=== PATIENT | female | born 1960 | race Caucasian/White ===

== ENCOUNTER 2018-06-24 07:30 | Inpatient (IN) | payer OTHER ==
--- NOTE | 2018-06-11 17:48 | HP ---
HISTORY AND PHYSICAL: DATE OF ADMISSION/SURGERY: 06/24/18 DATE OF OFFICE VISIT: 06/11/18 SURGEON: Marycruz Bailey MD *(DICTATED BYMARK VALENCIA) PROCEDURE: Bilateral total knee arthroplasties. CHIEF COMPLAINT: Bilateral knee pain. HISTORY OF PRESENT ILLNESS: Ms. Bowman is a 58-year-old female with bilateral knee pain secondary to end-stage osteoarthritis. She has failed conservative treatment and elected to proceed with bilateral total knee arthroplasties. PAST MEDICAL HISTORY: Rheumatoid arthritis. PAST SURGICAL HISTORY: Tonsillectomy, bunionectomy x2, tubal ligation, LASIK, cholecystectomy, anal fistula surgery, pilonidal cyst removal, and wisdom teeth extraction. CURRENT MEDICATIONS: 1. Advil. 2. Vitamin D. ALLERGIES: To PENICILLIN and SULFA. FAMILY HISTORY: Questionable aortic aneurysm. SOCIAL HISTORY: She is a 58-year-old female. She lives with her . She does not smoke or use drugs. Uses occasional alcohol. REVIEW OF SYSTEMS: A complete 14-point review of systems was reviewed with the patient. It was all negative or noncontributory. She denies a history of DVT, PE, hepatitis, HIV, or anesthesia problems. PHYSICAL EXAMINATION GENERAL: She is well-developed, well-nourished, in no acute distress. VITAL SIGNS: She stands 64 inches tall, weighs 245 pounds. Her blood pressure 136/80, heart rate 76. HEENT: Normocephalic, atraumatic. NECK: Supple. No palpable lymph nodes. PULMONARY: The lungs are clear to auscultation bilaterally. CARDIO: Regular rate and rhythm. Strong S1, S2. ABDOMEN: Soft, nontender, nondistended. NEUROLOGICAL: She is alert and oriented x3. MUSCULOSKELETAL: Bilateral lower extremities: The skin is intact. There are no open wounds or abrasions. There are moderate bilateral joint effusions. She walks with an antalgic-type gait. Range of motion is 10 to 120 degrees of both knees. Tenderness over the medial and lateral joint lines bilaterally. 2+ dorsalis pedis pulses bilaterally. She has intact sensation. Her lower extremity muscle group strengths are intact at 5/5 bilaterally. ASSESSMENT AND PLAN: Ms. Bowman is a 58-year-old female with end-stage osteoarthritis of both knees. She has failed conservative treatment and elected to proceed with bilateral knee arthroplasties. The surgery is scheduled for 06/24/18. Dr. Bailey discussed the risks and benefits of the surgery at today's visit and all of her questions were answered. She will follow up with Dr. Bailey 2 weeks after the surgery. MARK VALENCIA [id number]/[facility] #: [id number] [place]
[~2018-06-24 07:30] MED LIST: Buffered Lidocaine 0.9% SYRIN* 5 ML/SYR SYRINGE INTRADERM ONE; Sodium Citrate/Citric Acid* 15 ML UDC PO ONE; Tranexamic Acid 1,000 MG in NS 0.9% 50 ML* (outpatient use) IV SCH
--- OUTSIDE RECORDS SUMMARY | 2018-06-24 10:43 | XMS REPORT | Continuity of Care Document ---
:1960 External Reference #:[id number] Author Name Carolny Cullen M.D. Address [address] [place] [address] Care Team Providers Name Role Phone Carolyn Cullen M.D. Primary Care Physician Unavailable Payers Type Date Identification Numbers Payment Provider Subscriber Effective: Policy Number: [id number] [facility] Tamir Bowman 2000 Expires: 2012 Group Number: [id number] [address] PayID: [id number] [place] [address] Effective: 2012 Policy Number: [id number] [employer] Tamir Bowman Group Number: [id number] [address] PayID: [id number] [place] [address] Advance Directives Description No Information Available Problems Date Description Provider Status Onset: 08/24/2011 Pure hypercholesterolemia Radha Kim M.D. Active Onset: 08/24/2011 Arthralgia of the lower leg Radha Kim M.D. Active Onset: 08/24/2011 Obesity Radha Kim M.D. Active Family History Date Family Member(s) Problem(s) Comments Father CHF age 86 07/2015 Mother [place] age 60- of sudden [place]- thought to be due to ruptured aorta aneurysm Onset: (11/1993) Mother Aortic Aneurysm Cause of First Sister Hypertension Second Sister Hypertension Second Sister Osteoarthritis Maternal Grandfather ? Polycythemia ? thick blood Maternal Grandfather CVA possible due to thick blood- 50's or 60's Maternal Grandmother CVA around age 80 Social History Type Date Description Comments Sex Unknown Marital Status Tobacco Use Start: Unknown End: former cigarette smoker Quit 1981- started 1976 Unknown age 17- 4 years-- maybe 1-2 packs per week-- maybe 1-2 pack years Tobacco Use Start: Unknown End: Former Cigarette Smoker Unknown Allergies, Adverse Reactions, Alerts Date Description Reaction Status Severity Comments 06/02/2002 Penicillin Active Hives, ?Serum Sickness, Tight Breathing 09/19/2002 Sulfa Active Hives On Bactrim 04/13/2016 Plaquenil Rash Active Moderate rash likely due to plaquenil Medications Medication Date Status Form Strength Qnty SIG Indications Ordering Provider Econazole Nitrate 06/03 Active Cream 1% 30gm apply B37.2 twice a P. Blegen, day to M.D. fungal rash as directed for 2-4 weeks Vitamin D3 04/10 Active Capsules 2000Unit 1 by mouth P. Blegen, every day M.D. for vitamin d deficienc y Nasonex 03/09 Active Suspension 50mcg/Act 17uni instill 2 465.9 ts sprays in [facility], each TRUCKER-C nostril daily for rhinitis Nystatin 08/05 Hx Cream [id number] 30G use twice B37.2 t/GM a day to P. Blegen, - yeast M.D. 06/03 under breasts as needed for up to 2 weeks Ciprofloxacin HCL 10/23 Hx Tablets 500mg 16tab 1 by R10.32 Carolyn s mouth P. Blegen, - twice a M.D. 08/04 day x days for diverticu ltis- Please Fill Now Metronidazole 10/23 Hx Tablets 500mg 16tab 1 by R10.32 Carolyn s mouth P. Blegen, - twice a M.D. 08/04 day x days for Diverticu litis- Please Fill Now Ciprofloxacin HCL 05/06 Hx Tablets 500mg 20tab 1 by 562.11 s mouth [place] - twice a III, TRUCKER-C 01/15 day x days Metronidazole 05/06 Hx Tablets 500mg 20tab one by 562.11 Beto s mouth [place] - bidx 10 III, TRUCKER-C 01/15 days- not drink alcohol- please fill artemio Nitrofurantoin 03/21 Hx Capsules 100mg 14cap [address] s mouth P. Blegen, - twice a M.D. 01/15 day x days for uti Vitamin D3 03/15 Hx Capsules 2000Unit 1 by Carolyn mouth P. Blegen, - every day M.D. 01/15 Metronidazole 03/01 Hx Tablets 500mg 20tab one by 562.11 Carolyn s mouth P. Blegen, - BIDx 10 M.D. 03/15 days- not drink alcohol- please fill artemio Ciprofloxacin HCL 03/01 Hx Tablets 500mg 20tab 1 by 562.11 s mouth P. Blegen, - twice a M.D. 03/15 day x Days Oxycodone-Acetami 06/09 Hx Tablets 5-325mg 20twe 1-2 by 789.9 Susana nty mouth Julian, - every 4-6 TRUCKER-C 10/11 hours needed for pain Ciprofloxacin HCL 06/09 Hx Tablets 500mg 20tab take 1 s tablet by Julian, - mouth TRUCKER-C 10/11 twice day x 10 days Metronidazole 06/09 Hx Tablets 500mg 30tab take 1 s tablet by Julian, - mouth TRUCKER-C 10/11 times a day x 10 days Vitamin D3 06/01 Hx Capsules 1000Unit 2000 Iu Per Day - Shailesh Cullen, - Vitamin D M.D. 03/15 Deficien y Nystatin 03/02 Hx Cream [id number] 30G use twice t/GM a day to PJackie Cullen, - yeast M.D. 03/15 rash needed for up to 2 weeks Benzonatate 02/19 Hx Capsules 100mg 30cap 1 po tid 466.0 Shawnti R. /2012 s prn cough Storm, - TRUCKER-C 03/02 Azithromycin 02/19 Hx Tablets 250mg 6tabs 2 po 466.0 Shawnti R. /2012 today , - then 1 po TRUCKER-C 03/02 daily for 4 days Methylprednisolon 02/19 Hx Tablets 4mg 1pack take 466.0 Shawnti R. e Dose Pack oraly per , - package TRUCKER-C 03/02 direction s Ventolin HFA 02/19 Hx Aerosol 108(90Bas 18gm inhale 466.0 Shawnti R. e) two puffs , - mcg/Act by mouth TRUCKER-C 03/02 every hours as needed for wheeze Ondansetron Odt 05/08 Hx Tablets 4mg 20tab 1 po tid 079.99 Shawnti R. /2011 Dispers s prn , - nausea TRUCKER-C 03/02 Nabumetone 07/20 Hx Tablets 500mg 60tab 1 po bid 719.47 Radha s Bill Kim, - M.D. 03/02 Robitussin ac 07/27 Hx 150ml 1-2 tsp [facility]9 [facility] - prn TRUCKER-C 07/20 cough/sury n Guaifenesin-Codei 01/14 Hx Solution 100-10mg/ 150ml 1-2 tsp 465.9 Diego 5ML po q4hr Buster, - prn M.D. 07/20 Azithromycin 01/14 Hx Tablets 250mg 6tabs 2 po qd 465.9 day 1, Buster, - then 1 po M.D. 04/14 qd 2-5 Cephalexin 03/01 Hx Tablets 500mg 20tab 1 po bid 706.2 Harriet A. /2009 s for 10 Nicole, - days F.N.P.C. 03/01 Erythromycin 03/[address] 333mg 30tab one po 706.2 Harriet A. /2008 s tid for Nicole, - 10 days F.N.P.C. 07/20 Levaquin 01/05 Hx Tablets 500mg 14tab one p.O. 682.9 s qd x14 K.W. - days Alexx, 07/20 M.D. Keflex 12/22 Hx Capsules 500mg 20cap 1 po bid 682.9 s for 10 K.W. - days , 01/05 M.D. Proventil HFA 02/20 Hx Aerosol 90mcg/Dos 6.700 2 Puffs Q 466.0 Shawnti R. /2006 e gm 4 Hours Storm, - prn TRUCKER-C 02/19 Robitussin A-C 02/20 Hx Syrup 100mg;10m 4Oz one -two g/5ML teaspoons P. Blegen, - po qhs M.D. 01/14 prn /2009 cough- causes drowsines s Physical Therapy/ 10/02 Hx eval and Carolyn Chiropractor /2005 treat P. Blegen, - upper M.D. 07/20 back and /2010 neck pain Albuterol Metered 03/08 Hx Inhaler 17gm 2 puffs q Carolyn Dose Inhaler /2004 4hrs prn P. Blegen, - wheezing/ M.D. 08/07 Zithromax Z-Brent 03/08 Hx Tablets 250mg 6tabs two po qd today and P. Blegen, - then one M.D. 08/07 po qd 4 days Anaprox DS 04/12 Hx Tablets 550mg 90tab one s bid-tid K.W. - with food , 08/07 for foot .D. pain Robitussin A-C 09/22 Hx Syrup 4Oz 1-2 tsp 466.0 qhs prn P. Blegen, - cough M.D. 08/07 Zithromax 09/19 Hx Tablets 250mg 6tabs 2 on day one, then K.W. - one qd x4 Alexx, 09/28 days M.D. /2003 Ceftin 06/02 Hx 250mg 20uni One Twice Kayley ts A Day For Britni, - 10 Days CHEMICAL WEIGHER 11/17 Plaquenil Hx Tablets 200mg Carla, /0000 Toribio - 04/10 Immunizations CPT Code Status Date Vaccine Lot # [id number] Given 10/12/2014 Tdap (Adacel) [id number] Given 11/17/2002 DT (Adult) [id number] Given 09/09/1990 Tetanus Vital Signs Date Vital Result Comment 06/03/2018 1:54pm Weight 246.00 lb Weight 111.586 kg BP Systolic 136 mmHg BP Diastolic 88 mmHg BP Systolic Sitting 142 mmHg BP Diastolic Sitting 100 mmHg Heart Rate 74 /min Body Temperature 97.8 F Respiratory Rate 15 /min O2 % BldC Oximetry 99 % 08/05/2017 9:43am Weight 244.00 lb Weight 110.678 kg BP Systolic 120 mmHg BP Diastolic 70 mmHg Heart Rate 80 /min Body Temperature 97.5 F Height 65.5 inches 5'5.50" with shoes BMI (Body Mass Index) 40.0 kg/m2 Waist Circumference 47 10/23/2016 4:35pm Weight 253.00 lb Weight 114.761 kg BP Systolic 110 mmHg BP Diastolic 76 mmHg Heart Rate 72 /min Body Temperature 97.8 F 08/14/2016 3:02pm Weight 256.00 lb Weight 116.122 kg BP Systolic 130 mmHg BP Diastolic 80 mmHg Heart Rate 60 /min Body Temperature 97.5 F Respiratory Rate 12 /min 04/10/2016 12:04pm Weight 251.00 lb Weight 113.854 kg BP Systolic 130 mmHg BP Diastolic 88 mmHg Heart Rate 76 /min Body Temperature 98.6 F Respiratory Rate 18 /min O2 % BldC Oximetry 98 % 01/16/2016 4:44pm Weight 254.00 lb Weight 115.214 kg BP Systolic 130 mmHg BP Diastolic 90 mmHg Heart Rate 82 /min Body Temperature 99.0 F 05/06/2015 1:56pm Weight 243.00 lb Weight 110.225 kg BP Systolic 130 mmHg BP Diastolic 72 mmHg Heart Rate 96 /min Body Temperature 98.5 F 03/15/2015 1:04pm Weight 242.00 lb Weight 109.771 kg BP Systolic 102 mmHg BP Diastolic 70 mmHg Heart Rate 68 /min Height 64 inches 5'4" BMI (Body Mass Index) 41.5 kg/m2 03/09/2015 9:58am Weight 243.00 lb Weight 110.225 kg BP Systolic 130 mmHg BP Diastolic 84 mmHg Heart Rate 68 /min Body Temperature 99.5 F O2 % BldC Oximetry 98 % 03/01/2015 12:44pm Weight 246.00 lb Weight 111.586 kg BP Systolic 138 mmHg BP Diastolic 80 mmHg Heart Rate 80 /min Body Temperature 99.8 F 11/25/2014 3:34pm Weight 248.00 lb Weight 112.493 kg BP Systolic 134 mmHg BP Diastolic 76 mmHg Heart Rate 66 /min Body Temperature 98.2 F 10/12/2014 1:18pm Weight 248.00 lb Weight 112.493 kg BP Systolic 146 mmHg BP Diastolic 74 mmHg Heart Rate 64 /min 06/09/2014 10:33am Weight 241.00 lb Weight 109.318 kg BP Systolic 110 mmHg BP Diastolic 80 mmHg Heart Rate 70 /min Body Temperature 98.7 F 03/02/2014 2:07pm Weight 241.00 lb Weight 109.318 kg BP Systolic 142 mmHg BP Diastolic 80 mmHg Heart Rate 60 /min Height 64 inches 5'4" BMI (Body Mass Index) 41.4 kg/m2 Last Menstrual Period [id number] 02/19/2013 3:01pm Weight 244.00 lb Weight 110.678 kg BP Systolic 140 mmHg BP Diastolic 90 mmHg Heart Rate 80 /min Body Temperature 99.1 F Respiratory Rate 20 /min BMI (Body Mass Index) 428.8 kg/m2 05/08/2012 12:00pm Weight 243.00 lb Weight 110.225 kg BP Systolic 130 mmHg BP Diastolic 90 mmHg Heart Rate 100 /min Body Temperature 99.1 F O2 % BldC Oximetry 98 % AT Room Air 07/20/2011 4:20pm Weight 249.00 lb Weight 112.946 kg BP Systolic 122 mmHg BP Diastolic 80 mmHg Heart Rate 92 /min 07/27/2010 2:19pm Weight 244.00 lb Weight 110.678 kg BP Systolic 124 mmHg BP Diastolic 80 mmHg Heart Rate 96 /min Body Temperature 99.0 F O2 % BldC Oximetry 98 % at room air 01/14/2010 11:59am Weight 245.00 lb Weight 111.132 kg BP Systolic 130 mmHg BP Diastolic 80 mmHg Heart Rate 88 /min Body Temperature 99.1 F 11/17/2009 5:05pm Weight 58.968 kg BP Systolic 130 mmHg BP Diastolic 90 mmHg Heart Rate 68 /min 03/01/2009 1:56pm Weight 240.00 lb Weight 108.864 kg BP Systolic 142 mmHg BP Diastolic 74 mmHg Body Temperature 99.1 F 01/06/2008 10:39am Weight 238.00 lb Weight 107.957 kg BP Systolic 124 mmHg BP Diastolic 76 mmHg Heart Rate 78 /min Height 63.2 inches 5'3.20" BMI (Body Mass Index) 41.9 kg/m2 12/23/2007 10:18am Weight 235.00 lb Weight 106.596 kg BP Systolic 120 mmHg BP Diastolic 60 mmHg Heart Rate 68 /min Height 63.2 inches 5'3.20" BMI (Body Mass Index) 41.4 kg/m2 10/24/2007 4:01pm Weight 237.00 lb Weight 107.503 kg BP Systolic 120 mmHg BP Diastolic 78 mmHg Heart Rate 64 /min Height 63.2 inches 5'3.20" BMI (Body Mass Index) 41.7 kg/m2 05/26/2007 11:35am Weight 231.00 lb Weight 104.782 kg BP Systolic 114 mmHg BP Diastolic 78 mmHg Heart Rate 88 /min Body Temperature 99.4 F Height 63.2 inches 5'3.20" BMI (Body Mass Index) 40.7 kg/m2 02/20/2007 11:43am BP Systolic 118 mmHg BP Diastolic 76 mmHg Heart Rate 100 /min Body Temperature 97.8 F Height 63.2 inches 5'3.20" O2 % BldC Oximetry 97 % 10/02/2005 5:32pm Weight 229.50 lb Weight 104.101 kg BP Systolic 130 mmHg BP Diastolic 80 mmHg Height 63.2 inches 5'3.20" BMI (Body Mass Index) 40.4 kg/m2 08/07/2005 1:34pm Weight 232.00 lb Weight 105.235 kg BP Systolic 104 mmHg BP Diastolic 70 mmHg Heart Rate 72 /min Height 63.2 inches 5'3.20" BMI (Body Mass Index) 40.8 kg/m2 Last Menstrual Period [id number] 03/08/2005 10:28am Weight 229.00 lb Weight 103.874 kg BP Systolic 116 mmHg BP Diastolic 74 mmHg Body Temperature 97.9 F 04/12/2004 4:08pm Weight 225.00 lb Weight 102.060 kg BP Systolic 118 mmHg BP Diastolic 70 mmHg 09/22/2003 2:58pm Weight 225.00 lb Weight 102.060 kg BP Systolic 110 mmHg BP Diastolic 70 mmHg Heart Rate 118 /min Body Temperature 99.1 F Respiratory Rate 18 /min Last Menstrual Period 0 O2 % BldC Oximetry 94 % 08/27/2003 9:02am Weight 233.00 lb Weight 105.689 kg BP Systolic 120 mmHg BP Diastolic 80 mmHg Body Temperature 96.3 F Respiratory Rate 18 /min 04/20/2003 4:56pm Weight 233.00 lb Weight 105.689 kg BP Systolic 110 mmHg BP Diastolic 78 mmHg Body Temperature 98.1 F 12/22/2002 4:05pm Weight 227.00 lb Weight 102.967 kg BP Systolic 118 mmHg BP Diastolic 78 mmHg Heart Rate 72 /min 11/23/2002 11:52am Weight 227.00 lb Weight 102.967 kg BP Systolic 120 mmHg BP Diastolic 80 mmHg Heart Rate 82 /min Body Temperature 99.1 F Respiratory Rate 18 /min 11/17/2002 2:10pm Weight 227.00 lb Weight 102.967 kg BP Systolic 128 mmHg BP Diastolic 78 mmHg Heart Rate 80 /min Height 63.5 inches BMI (Body Mass Index) 39.6 kg/m2 Last Menstrual Period [id number] 09/19/2002 11:41am Weight 227.00 lb Weight 103.000 kg BP Systolic 130 mmHg BP Diastolic 78 mmHg Body Temperature 96.9 F 06/02/2002 11:53am Weight 227.00 lb Weight 103.000 kg BP Systolic 120 mmHg BP Diastolic 70 mmHg Body Temperature 99.0 F Respiratory Rate 18 /min Results Test Date Facility Test Result H/L Range Note Urine Culture And 06/03/2018 [facility] Urine Culture SEE RESULT 1 Sensitivities [phone] BELOW Urine DIP 06/03/2018 [facility] Leukocytes + Neg (607)- - Urine Nitrites NEG Neg Urobilinogen NORM Norm Total Protein, Urine TRACE Neg Urine pH 6 5-6 Urine Blood 250 High Neg Specific [place] 1.020 1.01-1.02 Urine Ketones NEG Neg Urine Bilirubin NEG Neg Urine Glucose NORM Norm Urine DIP 08/05/2017 [facility] Leukocytes ++ Neg (607)- - Urine Nitrites neg Neg Urobilinogen norm Norm Total Protein, Urine trace Neg Urine pH 5 5-6 Urine Blood trace Neg Specific [place] 1.020 1.01-1.02 Urine Ketones neg Neg Urine Bilirubin neg Neg Urine Glucose norm Norm Laboratory test 07/23/2017 [facility] TSH (Thyroid 3.55 0.34-5.60 finding [phone] Stimulating mcIU/mL Horm) Free T4 0.90 ng/dL 0.61-1.12 Comp Metabolic Panel 07/23/2017 [facility] Sodium 139 mmol/L 133-145 [phone] Potassium 4.3 mmol/L 3.5-5.0 Chloride 107 mmol/L 101-111 Co2 Carbon Dioxide 25 mmol/L 22-32 Anion Gap 7 mmol/L 2-11 Glucose 89 mg/dL 70-100 Blood Urea Nitrogen 18 mg/dL 6-24 Creatinine 0.78 mg/dL 0.51-0.95 BUN/Creatinine Ratio 23.1 High 8-20 Calcium 9.6 mg/dL 8.6-10.3 Total Protein 6.7 g/dL 6.4-8.9 Albumin 4.2 g/dL 3.2-5.2 Globulin 2.5 g/dL 2-4 Albumin/Globulin Ratio 1.7 1-3 Total Bilirubin 0.60 mg/dL 0.2-1.0 Alkaline Phosphatase 87 U/L 34-104 Alt 19 U/L 7-52 Ast 16 U/L 13-39 Egfr Non- 75.9 >60 Egfr 97.6 >60 2 CBC Auto Diff 07/23/2017 [facility] White Blood 6.5 10^3/uL 3.5-10.8 [phone] Count Red Blood Count 4.64 10^6/uL 4.0-5.4 Hemoglobin 13.9 g/dL 12.0-16.0 Hematocrit 41 % 35-47 Mean Corpuscular Volume 89 fL 80-97 Mean Corpuscular Hemoglobin 30 pg 27-31 Mean Corpuscular HGB Conc 34 g/dL 31-36 Red Cell Distribution Width 14 % 10.5-15 Platelet Count 220 10^3/uL 150-450 Mean Platelet Volume 8 um3 7.4-10.4 Abs Neutrophils 3.0 10^3/uL 1.5-7.7 Abs Lymphocytes 2.5 10^3/uL 1.0-4.8 Abs Monocytes 0.6 10^3/uL 0-0.8 Abs Eosinophils 0.3 10^3/uL 0-0.6 Abs Basophils 0.1 10^3/uL 0-0.2 Abs Nucleated RBC 0.01 10^3/uL Granulocyte % 46.7 % 38-83 Lymphocyte % 38.9 % 25-47 Monocyte % 9.1 % High 1-9 Eosinophil % 4.1 % 0-6 Basophil % 1.2 % 0-2 Nucleated Red Blood Cells % 0.2 Laboratory test 07/23/2017 [facility] Rheumatoid Factor 144 IU/mL <15 3 finding [phone] Erythrocyte Sed Rate 38 mm/Hr High 0-30 C Reactive Protein 13.64 mg/L High < 5.00 4 Vitamin D Total 25(Oh) 25.3 ng/mL 20-50 Lipid Profile 07/23/2017 [facility] Triglycerides 159 mg/dL 5 (Trig/Chol/HDL) [phone] Cholesterol 213 mg/dL 6 HDL Cholesterol 35.8 mg/dL 7 LDL Cholesterol 145 mg/dL 8 Urine DIP 10/23/2016 [facility] House [facility] Leukocytes TRACE Neg (607)- - Urine Nitrites NEG Neg Urobilinogen NORM Norm Total Protein, Urine NEG Neg Urine pH 7 High 5-6 Urine Blood TRACE Neg Specific [place] 1.010 1.01-1.02 Urine Ketones NEG Neg Urine Bilirubin NEG Neg Urine Glucose NORM Norm Urinalysis Profile 08/14/2016 [facility] Urine Color Yellow [phone] Urine Appearance Cloudy Urine Specific [place] 1.024 1.010-1.030 Urine pH 6.0 5-9 Urine Urobilinogen Negative Negative Urine Ketones Negative Negative Urine Protein Negative Negative Urine Leukocytes Trace Negative Urine Blood 1+ Negative Urine Nitrite Negative Negative Urine Bilirubin Negative Negative Urine Glucose Negative Negative Urine White Blood Cell 1+(6-10/hpf) Absent Urine Red Blood Cell 2+(6-10/hpf) Absent Urine Bacteria 1+ Absent Urine Squamous Epithelial Cell Present Absent Laboratory test 08/14/2016 [facility] Urine Culture SEE RESULT 9 finding [phone] BELOW Urine DIP 08/14/2016 [facility] House [facility] Leukocytes + Neg (607)- - Urine Nitrites neg Neg Urobilinogen norm Norm Total Protein, Urine pos Neg Urine pH 5 5-6 Urine Blood 50 High Neg Specific [place] 1.020 1.01-1.02 Urine Ketones neg Neg Urine Bilirubin neg Neg Urine Glucose norm Norm Laboratory test 06/28/2016 [facility] Cytology Non- [employer] Engineer SEE RESULT 10 finding [phone] BELOW Laboratory test 06/01/2016 [facility] TSH (Thyroid 2.50 0.34- finding [phone] Stimulating Horm) mcIU/mL 5.60 Free T4 0.97 ng/dL 0.61-1.12 Laboratory test 04/10/2016 [facility] Cytology SEE RESULT 11 finding [phone] BELOW Urinalysis Profile 04/10/2016 [facility] Urine Color Yellow [phone] Urine Appearance Cloudy Urine Specific [place] 1.024 1.010-1.030 Urine pH 5.0 5-9 Urine Urobilinogen Negative Negative Urine Ketones Negative Negative Urine Protein Negative Negative Urine Leukocytes 2+ Negative Urine Blood 1+ Negative Urine Nitrite Negative Negative Urine Bilirubin Negative Negative Urine Glucose Negative Negative Urine White Blood Cell 2+(11-20/hpf) Absent Urine Red Blood Cell 1+(3-5/hpf) Absent Urine Bacteria 2+ Absent Urine Squamous Epithelial Cell Present Absent Urine Calcium Oxalate Cryst Present Absent Laboratory test 04/10/2016 [facility] Urine Culture SEE RESULT 12 finding [phone] BELOW Urine DIP 04/10/2016 [facility] Leukocytes ++ Neg (607)- - Urine Nitrites NEG Neg Urobilinogen NORM Norm Total Protein, Urine NEG Neg Urine pH 5 5-6 Urine Blood 50 High Neg Specific [place] 1.02 1.01-1.02 Urine Ketones NEG Neg Urine Bilirubin NEG Neg Urine Glucose NORM Norm Laboratory test 03/28/2016 [facility] Vitamin D 31.3 30-50 13, 14 finding [phone] Total ng/mL 25(Oh) CMP - 03/28/2016 [facility] Sodium 138 133-145 Comprehensive [phone] mmol/L Metabolic Potassium 4.0 mmol/L 3.5-5.0 Chloride 106 mmol/L 101-111 Co2 Carbon Dioxide 27 mmol/L 22-32 Anion Gap 5 mmol/L 2-11 Glucose 90 mg/dL 70-100 Blood Urea Nitrogen 15 mg/dL 6-24 Creatinine 0.74 mg/dL 0.51-0.95 BUN/Creatinine Ratio 20.3 High 8-20 Calcium 9.3 mg/dL 8.6-10.3 Total Protein 6.5 g/dL 6.4-8.9 Albumin 3.9 g/dL 3.2-5.2 Globulin 2.6 g/dL 2-4 Albumin/Globulin Ratio 1.5 1-3 Total Bilirubin 0.60 mg/dL 0.2-1.0 Alkaline Phosphatase 80 U/L 34-104 Alt 25 U/L 7-52 Ast 19 U/L 13-39 Egfr Non- 81.2 >60 Egfr 104.4 >60 15 Lipid Panel 03/28/2016 [facility] Triglycerides 163 mg/dL 16 [phone] Cholesterol 207 mg/dL 17 HDL Cholesterol 37.7 mg/dL 18 LDL Cholesterol 137 mg/dL 19 CBC W/Auto 03/28/2016 [facility] White Blood 6.5 10^3 /uL 3.5-10.8 Differential [phone] Count Red Blood Count 4.84 10^6/uL 4.0-5.4 Hemoglobin 14.4 g/dL 12.0-16.0 Hematocrit 43 % 35-47 Mean Corpuscular Volume 89 fL 80-97 Mean Corpuscular Hemoglobin 30 pg 27-31 Mean Corpuscular HGB Conc 33 g/dL 31-36 Red Cell Distribution Width 14 % 10.5-15 Platelet Count 211 10^3/uL 150-450 Mean Platelet Volume 9 um3 7.4-10.4 Abs Neutrophils 3.7 10^3/uL 1.5-7.7 Abs Lymphocytes 2.1 10^3/uL 1.0-4.8 Abs Monocytes 0.4 10^3/uL 0-0.8 Abs Eosinophils 0.2 10^3/uL 0-0.6 Abs Basophils 0.1 10^3/uL 0-0.2 Abs Nucleated RBC 0.06 10^3/uL Granulocyte % 57.6 % 38-83 Lymphocyte % 32.0 % 25-47 Monocyte % 6.9 % 1-9 Eosinophil % 2.4 % 0-6 Basophil % 1.1 % 0-2 Nucleated Red Blood Cells % 0.9 Laboratory test 03/28/2016 [facility] Erythrocyte Sed 37 mm/Hr High 0-30 20 finding [phone] Rate C Reactive Protein 17.47 mg/L High < 5.00 21 Laboratory test 09/21/2015 [facility] Vitamin D Total 26.2 Low 30-50 22 finding [phone] 25(Oh) ng/mL Lipid Panel 09/21/2015 [facility] Triglycerides 208 mg/dL 23 [phone] Cholesterol 206 mg/dL 24 HDL Cholesterol 33.0 mg/dL 25 LDL Cholesterol 131 mg/dL 26 CBC W/Auto 09/21/2015 [facility] White Blood 6.7 10^3 /uL 3.5-10.8 Differential [phone] Count Red Blood Count 4.83 10^6/uL 4.0-5.4 Hemoglobin 14.4 g/dL 12.0-16.0 Hematocrit 43 % 35-47 Mean Corpuscular Volume 90 fL 80-97 Mean Corpuscular Hemoglobin 30 pg 27-31 Mean Corpuscular HGB Conc 33 g/dL 31-36 Red Cell Distribution Width 14 % 10.5-15 Platelet Count 199 10^3/uL 150-450 Mean Platelet Volume 8 um3 7.4-10.4 Abs Neutrophils 3.6 10^3/uL 1.5-7.7 Abs Lymphocytes 2.3 10^3/uL 1.0-4.8 Abs Monocytes 0.6 10^3/uL 0-0.8 Abs Eosinophils 0.2 10^3/uL 0-0.6 Abs Basophils 0.1 10^3/uL 0-0.2 Abs Nucleated RBC 0.01 10^3/uL Granulocyte % 53.8 % 38-83 Lymphocyte % 34.6 % 25-47 Monocyte % 8.3 % 1-9 Eosinophil % 2.5 % 0-6 Basophil % 0.8 % 0-2 Nucleated Red Blood Cells % 0.2 CMP - Comprehensive 09/21/2015 [facility] Sodium 137 mmol/L 133-145 Metabolic [phone] Potassium 4.2 mmol/L 3.5-5.0 Chloride 104 mmol/L 101-111 Co2 Carbon Dioxide 27 mmol/L 22-32 Anion Gap 6 mmol/L 2-11 Glucose 90 mg/dL 70-100 Blood Urea Nitrogen 18 mg/dL 6-24 Creatinine 0.78 mg/dL 0.51-0.95 BUN/Creatinine Ratio 23.1 High 8-20 Calcium 9.3 mg/dL 8.6-10.3 Total Protein 6.9 g/dL 6.4-8.9 Albumin 4.1 g/dL 3.2-5.2 Globulin 2.8 g/dL 2-4 Albumin/Globulin Ratio 1.5 1-3 Total Bilirubin 0.70 mg/dL 0.2-1.0 Alkaline Phosphatase 94 U/L 34-104 Alt 26 U/L 7-52 Ast 16 U/L 13-39 Egfr Non- 76.4 >60 Egfr 98.3 >60 27 Laboratory test 09/21/2015 [facility] Erythrocyte Sed 33 mm/Hr High 0-30 28 finding [phone] Rate C Reactive Protein 14.74 mg/L High < 5.00 29 Rheumatoid Factor 91 IU/mL <15 30 Urinalysis Profile 04/15/2015 [facility] Urine Color Straw [phone] Urine Appearance Clear Urine Specific [place] 1.003 Low 1.010-1.030 Urine pH 7.0 5-9 Urine Urobilinogen Negative Negative Urine Ketones Negative Negative Urine Protein Negative Negative Urine Leukocytes Negative Negative Urine Blood Negative Negative Urine Nitrite Negative Negative Urine Bilirubin Negative Negative Urine Glucose Negative Negative Laboratory test 03/15/2015 [facility] Cytology SEE RESULT 31 finding [phone] BELOW Urinalysis Profile 03/15/2015 [facility] Urine Color Yellow [phone] Urine Appearance Clear Urine Specific [place] 1.018 1.010-1.030 Urine pH 6.0 5-9 Urine Urobilinogen Negative Negative Urine Ketones Negative Negative Urine Protein Negative Negative Urine Leukocytes Negative Negative Urine Blood 1+ Negative Urine Nitrite Negative Negative Urine Bilirubin Negative Negative Urine Glucose Negative Negative Urine White Blood Cell Absent Absent Urine Red Blood Cell Trace(0-2/hpf) Absent Urine Bacteria 1+ Absent Urine Squamous Epithelial Cell Present Absent Laboratory test 03/15/2015 [facility] Urine Culture SEE RESULT 32 finding [phone] BELOW Urine DIP 03/15/2015 [facility] House Lab Specific 1.015 1.01-1 (607)- - [place] .02 Urine pH 5 5-6 Leukocytes trace Neg Urine Nitrites neg Neg Total Protein, Urine neg Neg Urine Glucose norm Norm Urine Ketones neg Neg Urobilinogen norm Norm Urine Bilirubin neg Neg Urine Blood 50 High Neg Laboratory test 03/09/2015 [facility] House [facility] Strep Screen NEG Neg finding (607)- - CBC Auto Diff 03/01/2015 [facility] White Blood 10.3 4.8-10.8 [phone] Count 10^3/uL Red Blood Count 4.90 10^6/uL 4.0-5.4 Hemoglobin 14.5 g/dL 12.0-16.0 Hematocrit 45 % 35-47 Mean Corpuscular Volume 91 fL 80-97 Mean Corpuscular Hemoglobin 30 pg 27-31 Mean Corpuscular HGB Conc 33 g/dL 31-36 Red Cell Distribution Width 14 % 10.5-15 Platelet Count 199 10^3/uL 150-450 Mean Platelet Volume 9 um3 7.4-10.4 Abs Neutrophils 6.2 10^3/uL 1.5-7.7 Abs Lymphocytes 2.9 10^3/uL 1.0-4.8 Abs Monocytes 0.9 10^3/uL High 0-0.8 Abs Eosinophils 0.2 10^3/uL 0-0.6 Abs Basophils 0.1 10^3/uL 0-0.2 Abs Nucleated RBC 0 10^3/uL Granulocyte % 60.2 % 38-83 Lymphocyte % 28.5 % 25-47 Monocyte % 9.1 % High 1-9 Eosinophil % 1.7 % 0-6 Basophil % 0.5 % 0-2 Nucleated Red Blood Cells % 0 Laboratory test 03/01/2015 [facility] Erythrocyte Sed 35 mm/Hr High 0-30 33 finding [phone] Rate C Reactive Protein 15.09 mg/L High < 5.00 34 Comp Metabolic Panel 03/01/2015 [facility] Sodium 139 mmol/L 133-145 [phone] Potassium 4.7 mmol/L 3.5-5.0 Chloride 105 mmol/L 101-111 Co2 Carbon Dioxide 28 mmol/L 22-32 Anion Gap 6 mmol/L 2-11 Glucose 67 mg/dL Low 70-100 Blood Urea Nitrogen 17 mg/dL 6-24 Creatinine 0.84 mg/dL 0.51-0.95 BUN/Creatinine Ratio 20.2 High 8-20 Calcium 9.5 mg/dL 8.6-10.3 Total Protein 6.7 g/dL 6.4-8.9 Albumin 4.1 g/dL 3.2-5.2 Globulin 2.6 g/dL 2-4 Albumin/Globulin Ratio 1.6 1-3 Total Bilirubin 0.50 mg/dL 0.2-1.0 Alkaline Phosphatase 102 U/L 34-104 Alt 38 U/L 7-52 Ast 24 U/L 13-39 Egfr Non- 70.4 >60 Egfr 90.5 >60 35 Laboratory test 03/01/2015 [facility] Rheumatoid Factor 57 IU/mL <15 36 finding [phone] Vitamin D Total 25(Oh) 19.6 ng/mL Low 30-50 37 Laboratory test 11/25/2014 [facility] TSH (Thyroid 2.94 IU/mL 0.34-5.60 finding [phone] Stimulating Horm) Free T4 0.86 ng/mL 0.61-1.12 CBC No Diff 11/25/2014 [facility] White Blood 8.5 10^ 3/uL 4.8-10.8 [phone] Count Red Blood Count 4.54 10^6/uL 4.0-5.4 Hemoglobin 13.6 g/dL 12.0-16.0 Hematocrit 41 % 35-47 Mean Corpuscular Volume 90 fL 80-97 Mean Corpuscular Hemoglobin 30 pg 27-31 Mean Corpuscular HGB Conc 33 g/dL 31-36 Red Cell Distribution Width 15 % 10.5-15 Platelet Count 230 10^3/uL 150-450 Mean Platelet Volume 9 um3 7.4-10.4 Urinalysis Profile 10/12/2014 [facility] Urine Color Yellow [phone] Urine Appearance Turbid Urine Specific [place] 1.025 1.010-1.030 Urine pH 5.0 5-9 Urine Urobilinogen Negative Negative Urine Ketones Negative Negative Urine Protein Negative Negative Urine Leukocytes Trace Negative Urine Blood Negative Negative Urine Nitrite Negative Negative Urine Bilirubin Negative Negative Urine Glucose Negative Negative Urine White Blood Cell Trace(0-5/hpf) Absent Urine Red Blood Cell Absent Absent Urine Bacteria Absent Absent Urine Squamous Epithelial Cell Present Absent Urine Amorphous Crystals Present Absent Urine Culture And 10/12/2014 [facility] Urine Culture (SEE NOTE) 38 Sensitivities [phone] Urine DIP 10/12/2014 In House Lab Specific 1.020 1.01- (607)- - [place] 1.02 Urine pH 5 5-6 Leukocytes + Neg Urine Nitrites NEG Neg Total Protein, Urine POS Neg Urine Glucose NORM Norm Urine Ketones NEG Neg Urobilinogen NORM Norm Urine Bilirubin NEG Neg Urine Blood ABOUT 50 Neg Urine DIP 06/09/2014 In House Lab Specific [place] 1.015 1.01-1.02 (607)- - Urine pH 6 5-6 Leukocytes tace Neg Urine Nitrites neg Neg Total Protein, Urine neg Neg Urine Glucose neg Norm Urine Ketones neg Neg Urobilinogen norm Norm Urine Bilirubin + Neg Urine Blood trace Neg Laboratory test 06/09/2014 [facility] Lipase 18 U/L 11.0-82.0 finding [phone] Amylase 26 U/L Low 29-103 Comp Metabolic Panel 06/09/2014 [facility] Sodium 139 mmol/L 133-145 [phone] Potassium 4.0 mmol/L 3.7-5.6 Chloride 103 mmol/L 101-111 Co2 Carbon Dioxide 30 mmol/L 22-32 Anion Gap 6 mmol/L 2-11 Glucose 86 mg/dL 70-100 Blood Urea Nitrogen 11 mg/dL 6-24 Creatinine 0.83 mg/dL 0.51-0.95 BUN/Creatinine Ratio 13.3 8-20 Calcium 9.6 mg/dL 8.6-10.3 Total Protein 7.4 g/dL 6.4-8.9 Albumin 4.1 g/dL 3.2-5.2 Globulin 3.3 g/dL 2-4 Albumin/Globulin Ratio 1.2 1-3 Total Bilirubin 0.70 mg/dL 0.2-1.0 Alkaline Phosphatase 100 U/L 34-104 Alt 30 U/L 7-52 Ast 24 U/L 13-39 Egfr Non- 71.4 >60 Egfr 91.8 >60 39 CBC Auto 06/09/2014 [facility] White Blood 12.7 10^3/ uL High 4.8-10.8 Diff [phone] Count Red Blood Count 4.92 10^6/uL 4.0-5.4 Hemoglobin 14.4 g/dL 12.0-16.0 Hematocrit 43 % 35-47 Mean Corpuscular Volume 88 fL 80-97 Mean Corpuscular Hemoglobin 29 pg 27-31 Mean Corpuscular HGB Conc 34 g/dL 31-36 Red Cell Distribution Width 15 % 10.5-15 Platelet Count 214 10^3/uL 150-450 Mean Platelet Volume 8 um3 7.4-10.4 Abs Neutrophils 8.9 10^3/uL High 1.5-7.7 Abs Lymphocytes 2.5 10^3/uL 1.0-4.8 Abs Monocytes 1.1 10^3/uL High 0-0.8 Abs Eosinophils 0.2 10^3/uL 0-0.6 Abs Basophils 0 10^3/uL 0-0.2 Abs Nucleated RBC 0.01 10^3/uL Granulocyte % 70.6 % 38-83 Lymphocyte % 19.4 % Low 25-47 Monocyte % 8.4 % 1-9 Eosinophil % 1.4 % 0-6 Basophil % 0.2 % 0-2 Nucleated Red Blood Cells % 0 Vitamin D, 25 04/01/2014 [facility] 25-Hydroxy Vitamin <4.0 ng/mL Hydroxy [phone] D2 25-Hydroxy Vitamin D3 30 ng/mL 25-Hydroxy Vitamin D Total 30 ng/mL 40 Laboratory test 04/01/2014 [facility] Erythrocyte Sed 33 mm/Hr High 0-30 finding [phone] Rate C Reactive Protein 19.38 mg/L High < 5.00 41 Rheumatoid Factor 50 IU/mL <15 42 Follicle Stimulating Hormone 27.7 IU/mL 43 Surgical Pathology 03/30/2014 [facility] S RUN DATE: 35 [phone] 03/31/ <SEE NOTE> Urinalysis Profile 03/02/2014 [facility] Urine Color Green [phone] Urine Appearance Turbid Urine Specific [place] 1.030 1.010-1.030 Urine pH 5.0 5-9 Urine Urobilinogen Negative Negative Urine Ketones Negative Negative Urine Protein 1+(30 mg/dL) Negative Urine Leukocytes Trace Negative Urine Blood Negative Negative Urine Nitrite Negative Negative Urine Bilirubin Negative Negative Urine Glucose Negative Negative Urine White Blood Cell Trace(0-5/hpf) Absent Urine Red Blood Cell Trace Absent Urine Bacteria 2+ Absent Urine Amorphous Crystals Present Absent Urine Culture And 03/02/2014 [facility] Urine Culture (SEE NOTE) 45 Sensitivities [phone] Laboratory test 03/02/2014 [facility] Cytology RUN DATE: 46 finding [phone] 03/03/ <SEE NOTE> HPV High Risk 03/02/2014 [facility] Human See Comment 47 [phone] Papillomavirus Source HPV High Risk Type 16, PCR Negative Negative HPV High Risk Type 18, PCR Negative Negative HPV Other Risk types Negative Negative 48 Urine DIP 03/02/2014 In House Lab Specific [place] 1.03 High 1.01-1.02 (607)- - Urine pH 5 5-6 Leukocytes ++ Neg Urine Nitrites neg Neg Total Protein, Urine trace Neg Urine Glucose norm Norm Urine Ketones neg Neg Urobilinogen norm Norm Urine Bilirubin neg Neg Urine Blood 50 High Neg Laboratory 02/09/2014 [facility] Hepatitis C Nonreactive Nonreactive 49 test finding [phone] Antibody TSH (Thyroid Stimulating Horm) 2.40 IU/mL 0.34-5.60 Free T4 0.92 ng/mL 0.61-1.12 CBC - Complete 02/09/2014 [facility] White Blood 6.0 10^3/uL 4.8-10.8 Blood Count [phone] Count Red Blood Count 4.58 10^6/uL 4.0-5.4 Hemoglobin 13.1 g/dL 12.0-16.0 Hematocrit 39 % 35-47 Mean Corpuscular Volume 85 fL 80-97 Mean Corpuscular Hemoglobin 29 pg 27-31 Mean Corpuscular HGB Conc 34 g/dL 31-36 Red Cell Distribution Width 15 % 10.5-15 Platelet Count 202 10^3/uL 150-450 Mean Platelet Volume 8 um3 7.4-10.4 Lipid Panel 02/09/2014 [facility] Triglycerides 162 mg/dL 50 [phone] Cholesterol 201 mg/dL 51 HDL Cholesterol 37.3 mg/dL 52 LDL Cholesterol 131 mg/dL 53 CMP - Comprehensive 02/09/2014 [facility] Sodium 139 mmol/L 133-145 Metabolic [phone] Potassium 4.1 mmol/L 3.7-5.6 Chloride 106 mmol/L 101-111 Co2 Carbon Dioxide 26 mmol/L 22-32 Anion Gap 7 mmol/L 2-11 Glucose 93 mg/dL 70-100 Blood Urea Nitrogen 15 mg/dL 6-24 Creatinine 0.75 mg/dL 0.51-0.95 BUN/Creatinine Ratio 20.0 8-20 Calcium 9.1 mg/dL 8.6-10.3 Total Protein 6.6 g/dL 6.4-8.9 Albumin 4.0 g/dL 3.2-5.2 Globulin 2.6 g/dL 2-4 Albumin/Globulin Ratio 1.5 1-3 Total Bilirubin 0.50 mg/dL 0.2-1.0 Alkaline Phosphatase 90 U/L 34-104 Alt 25 U/L 7-52 Ast 15 U/L 13-39 Egfr Non- 80.5 >60 Egfr 103.6 >60 54 Comp Metabolic Panel 05/08/2012 [facility] Sodium 137 mmol/L 135-145 [phone] Potassium 3.9 mmol/L 3.5-5.0 Chloride 103 mmol/L 101-111 Co2 (Carbon Dioxide) 26.0 mmol/L 22-32 Anion Gap 8.0 mmol/L 2-11 55 Glucose 85 mg/dL 70-100 BUN 8 mg/dL 6-24 Creatinine 0.8 mg/dL 0.50-1.40 One Over Creatinine 1.25 BUN/Creatinine Ratio 10.0 8-20 Calcium 9.2 mg/dL 8.1-9.9 Total Protein 6.8 GM/DL 6.2-8.1 Albumin 3.8 GM/DL 3.6-5.4 Globulin 3.0 GM/DL 2-4 Albumin/Globulin Ratio 1.3 1-3 Bilirubin Total 0.5 mg/dL 0.4-1.5 56 Alkaline Phosphatase 128 U/L High 30-110 Alt (SGPT) 58 U/L High 14-54 Ast (Sgot) 54 U/L High 12-42 eGFR Non- 75.0 > 60 eGFR 96.5 > 60 57 Laboratory test 05/08/2012 [facility] Amylase 32 U/L 20-120 58 finding [phone] Lipase 23 U/L 22-51 CBC Auto Diff 05/08/2012 [facility] White Blood 6.7 CUMM 4.8-10.8 [phone] Count Red Cell Count 4.71 CUMM 4.2-5.4 Hemoglobin 12.8 g/dL 12.0-16.0 Hematocrit 39 % 35-47 Mean Corpuscular Volume 82 um3 79-97 Mean Corpuscular Hemoglob 27 pg 27-31 Mean Corpuscular HGB Cone 33 g/dL 32-36 Redcell Distribution WDTH 15 % 10.5-15 Platelet Count 204 CUMM 150-450 Mean Platelet Volume 8.8 um3 7.4-10.4 Gran % 62.7 % 38-83 Lymph % 26.4 % 20-45 Mononuclear % 9.6 % High 1-9 Eosinophil % 0.6 % 0-6 Basophil % 0.7 % 0-2 Abs Lymphs 1.8 1.0-4.8 Abs Mononuclear 0.6 0-0.8 Absolute Neutrophil Count 4.2 1.5-7.7 Abs Eosinophils 0 0-0.6 Abs Basophils 0 0-0.2 Laboratory test 01/14/2010 In House Lab Flu Test A&B, neg finding (607)- - [facility] Surgical Pathology 09/21/2009 [facility] Surgical --- -------- 59 [phone] Pathology ----- <SEE NOTE> Laboratory test 12/23/2007 [facility] Cytology ------ ----- 60 finding [phone] ----- <SEE NOTE> Laboratory test 02/20/2007 In House Lab Strep Screen NEG Neg finding (607)- - Thyroid Panel 06/09/2006 [facility] Thyroxine 9.8 g /dL 5-12 [phone] TSH 2.45 MIU/ML 0.34-5.60 Free Thyroxine 0.82 ng/dL 0.58-1.64 CBC With 06/09/2006 [facility] White Blood 6.2 CUMM 4.8-10.8 Electronic Diff [phone] Count Abs Basophils 0 0-0.2 Abs Eosinophils 0.2 0-0.6 Absolute Neutrophil Count 3.3 1.5-7.7 Abs Lymphs 2.1 1.0-4.8 Abs Mononuclear 0.6 0-0.8 Basophil % 0.7 % 0-2 Hematocrit 38 % 35-47 Hemoglobin 12.4 g/dL 12.0-16.0 Eosinophil % 3.2 % 0-6 Gran % 53.0 % 38-83 Lymph % 34.2 % 20-45 Mean Corpuscular HGB Cone 33 g/dL 32-36 Mean Corpuscular Hemoglob 26 pg Low 27-31 Mean Corpuscular Volume 79 um3 79-97 Mean Platelet Volume 8.3 um3 7.4-10.4 Mononuclear % 8.9 % 1-9 Platelet Count 264 CUMM 150-450 Red Cell Count 4.82 CUMM 4.2-5.4 Redcell Distribution WDTH 16 % High 10.5-15 Lipid Profile 08/10/2005 [facility] Cholesterol 220 mg/dL High Less 61 (Trig/Chol/HDL) [phone] Than 200 Triglyceride 105 mg/dL 40-200 High Density Lipoprotein 42 mg/dL 40-60 Low Density Lipoprotein 157 mg/dL High Less Than 100 62 Cholesterol/HDL Ratio 5.24 AVERAGE High 1-4.44 Laboratory test 08/10/2005 [facility] TSH 2.56 MIU/ ML 0.34-5.60 finding [phone] CBC With 08/10/2005 [facility] White Blood 7.3 CUMM 4.8-10.8 Electronic Diff [phone] Count Abs Basophils 0 0-0.2 Abs Eosinophils 0.1 0-0.6 Absolute Neutrophil Count 4.3 1.5-7.7 Abs Lymphs 2.2 1.0-4.8 Abs Mononuclear 0.7 0-0.8 Basophil % 0.5 % 0-2 Hematocrit 36 % 35-47 Definitive Flag 1+ Hemoglobin 12.1 g/dL 12.0-16.0 Eosinophil % 1.3 % 0-6 Gran % 58.8 % 38-83 Lymph % 29.7 % 20-45 Mean Corpuscular HGB Cone 34 g/dL 32-36 Mean Corpuscular Hemoglob 27 pg 27-31 Mean Corpuscular Volume 79 um3 79-97 Mean Platelet Volume 8.6 um3 7.4-10.4 Mononuclear % 9.7 % High 1-9 Platelet Count 264 CUMM 150-450 Red Cell Count 4.56 CUMM 4.2-5.4 Redcell Distribution WDTH 15 % 10.5-15 Laboratory test 08/10/2005 [facility] Free Thyroxine 0.81 ng/dL 0.58-1.64 finding [phone] Comp Metabolic 08/10/2005 [facility] One Over 1.11 Panel [phone] Creatinine Anion Gap 7.0 mmol/L 2-11 63 Albumin/Globulin Ratio 1.2 1-3 Albumin 3.6 GM/DL 3.6-5.4 Alkaline Phosphatase 92 U/L 30-110 Alt (SGPT) 23 U/L 14-54 Ast (Sgot) 18 U/L 12-42 BUN 16 mg/dL 6-24 Calcium 8.9 mg/dL 8.7-10.2 Chloride 106 mmol/L 101-111 Co2 (Carbon Dioxide) 26.0 mmol/L 22-32 Globulin 3.0 GM/DL 2-4 Glucose 82 mg/dL 70-105 Potassium 4.3 mmol/L 3.5-5.0 Sodium 139 mmol/L 135-145 Bilirubin Total 0.7 mg/dL 0.4-1.5 Total Protein 6.6 GM/DL 6.2-8.1 BUN/Creatinine Ratio 17.8 8-20 Creatinine 0.9 mg/dL 0.5-1.4 Cytology 08/08/2005 [facility] Cytology Run: 17 64 [phone] <SEE NOTE> Urine DIP 08/07/2005 In House Lab Leukocytes NEG Neg (607)- - Urine Nitrites NEG Neg Urine pH 6 5-6 Total Protein, Urine NL Neg Urine Glucose NL Norm Urine Ketones NL Neg Urobolinogen NL Norm Urine Bilirubin NL Neg Urine Blood NL Neg Specific [place] N/A Low 1.01-1.02 Laboratory test 08/07/2005 [facility] Thin Layer Pap REC'D-SEE finding [phone] W/Reflex To HPV IMAGE For ASCUS Laboratory test 12/08/2002 In House Lab Strep Screen NEG Neg finding (607)- - Laboratory test 11/17/2002 In House Lab Hemoglobin 13.9 finding (607)- - Urine DIP 11/17/2002 In House Lab Leukocytes NEG Neg (607)- - Urine Nitrites NEG Neg Urine pH 5 5-6 Total Protein, Urine NEG Neg Urine Glucose NORM Norm Urine Ketones NEG Neg Urobolinogen NOR Norm Urine Bilirubin NEG Neg Urine Blood 250 High Neg Specific [place] NA Low 1.01-1.02 1 SEE RESULT BELOW Name: TAMIR BOWMAN : [address]: Carolyn Cullen MD Acct: [id number] Unit: [id number] AGE: 58 Location: [facility] Re06/03/18 SEX: F Status: REG REF SPEC: [id number] YOHANA: 06/03/18-[address] [facility] [address]: Carolyn Cullen MD REQ: [id number] RECD: 06/03/18 STATUS: COMP _ SOURCE: URINE SPDESC: ORDERED: Urine Culture COMMENTS: [id number] Urine Source: Clean Catch Procedure Result Reported Site Urine Culture Final 06/05/18- 46 ML No growth of clinically significant organisms * ML - Main Lab . END OF REPORT DEPARTMENT OF PATHOLOGY, [address] [place] [address] Harshal Godoy M.D. Director [facility] # [id number] 2 Because ethnic data is not always readily available, this report includes an eGFR for both -Americans and non- Americans. The National Kidney Disease Education Program (NKDEP) does not endorse the use of the MDRD equation for patients that are not between the ages of 18 and 70, are , have extremes of body size, muscle mass, or nutritional status, or are non- or non-. According to the National Kidney Foundation, irrespective of diagnosis, the stage of the disease is based on the level of kidney function: Stage Description GFR(mL/min/1.73 m(2)) 1 Kidney damage with normal or decreased GFR 90 2 Kidney damage with mild decrease in GFR 60-89 3 Moderate decrease in GFR 30-59 4 Severe decrease in GFR 15-29 5 Kidney failure <15 (or dialysis) 3 Test Performed by: [address] [address] 4 Acute inflammation: >10.00 5 Desirable: <150 Borderline High: 150-199 High: 200-499 Very High: >500 6 Desirable: <200 Borderline High: 200-239 High: >239 7 Low: <40 Desirable: 40-60 High: >60 8 Desirable: <100 Near Optimal: 100-129 Borderline High: 130-159 High: 160-189 Very High: >189 9 SEE RESULT BELOW Name: TAMIR BOWMAN : [address]: Carolyn Cullen MD Acct: [id number] Unit: [id number] AGE: 56 Location: [facility] Re08/14/16 SEX: F Status: REG REF SPEC: [id number] YOHANA: 08/14/16-[address]: Carolyn Cullen MD REQ: [id number] RECD: 08/14/16 STATUS: COMP _ SOURCE: URINE SPDESC: ORDERED: Urine Culture Procedure Result Reported Site Urine Culture Final 08/15/16- 1632 ML No growth of clinically significant organisms * ML - MAIN LAB ([facility]) . END OF REPORT * ML=Testing performed at Main Lab DEPARTMENT OF PATHOLOGY, [address] [place] [address] Harshal Godoy M.D. Director [facility] # [id number] 10 SEE RESULT BELOW Name: TAMIR BOWMAN Remedios : [address]: Romie Shannon MD Acct: [id number] Unit: [id number] AGE: 56 Location: THYROID Re06/28/16 SEX: F Status: REG REF SPEC: [id number] YOHANA: 06/28/16-[address]: Meg Abernathy MD REQ: [id number] RECD: 06/28/16 STATUS: HANNA CHRISTIE DR: Romie Cullen MD _ ORDERED: FN ASP DEEP/2, FNA Imme St Add, FNA IMMEDIATE S/2 FINAL DIAGNOSIS 1) Thyroid, right mid, 1.1cm, Ultrasound guided, fine needle aspiration: Benign thyroid nodule- colloid/hyperplastic (Bly class II). 2) Thyroid, right mid, 1.0cm, Ultrasound guided, fine needle aspiration: Benign thyroid nodule-colloid/hyperplastic (Bly class II). 1) The specimen demonstrates moderate watery colloid, a moderate amount of benign appearing follicular epithelium arranged in uniform sheets, medium sized follicles and only occasional small groups. No features of papillary carcinoma are seen. In this clinical setting the risk of malignancy is less than 3%. Clinical management of this thyroid nodule should be based on clinical and radiographic features as well as the above. 2) The specimen demonstrates moderate watery colloid, a moderate amount of benign appearing follicular epithelium arranged in uniform sheets, medium sized follicles and only occasional small groups. No features of papillary carcinoma are seen. Inthis clinical setting the risk of malignancy is less than 3%. Clinical management of this thyroid nodule CONTINUED ON NEXT PAGE * ML=Testing performed at Main Lab DEPARTMENT OF PATHOLOGY, [address] [place] [address] Harshal Godoy M.D. Director [facility] # [id number] RUN DATE: 06/30/16 [facility] LIVE PAGE 2 Patient: PEPPERTAMIR Remedios [id number] (Continued) SPECIMEN COMMENTS (Continued) should be based on clinical and radiographic features as well as the above. #1. THYROID RIGHT - US GUIDED FINE NEEDLE ASPIRATION, #2. THYROID RIGHT - US GUIDED FINE NEEDLE ASPIRATION CLINICAL HISTORY 1) Right mid nodule-1.1cm 2) Right mid nodule-1.0cm IMMEDIATE INTERPRETATION 1) Pass 1-adequate 2) Pass 1-inadequate, pass 2-adequate GROSS DESCRIPTION 1) 4 - alcohol fixed slide(s) 1- passes 2) 5 - alcohol fixed slide(s) 2 - passes Signed (signature on file) Harshal Godoy MD [id number] END OF REPORT * ML=Testing performed at Main Lab DEPARTMENT OF PATHOLOGY, [address] [place] [address] Harshal Godoy M.D. Director [facility] # [id number] 11 SEE RESULT BELOW Name: TAMIR BOWMAN : [address]: Carolyn Cullen MD Acct: [id number] Unit: [id number] AGE: 55 Location: [facility] Re04/10/16 SEX: F Status: REG REF SPEC: [id number] YOHANA: 04/10/16-[address] [facility] [address]: Carolyn Cullen MD REQ: [id number] RECD: 04/10/16 STATUS: SOUT _ ORDERED: IMAGE ANALYSIS, HPV 16/18 GENE COMMENTS: [id number] FINAL DIAGNOSIS Negative for Intraepithelial lesion or Malignancy A. Ectocervical/Endocervical Specimen Adequacy: Satisfactory of evaluation Transformation zone component identified Patient Information: HPV: Thin Layer Pap Test w/reflex to high risk HPV RNA testing when ASCUS HPV 16/18 Genotype Reflex Actual Specimen Date: 04/10/16 Date of Last Specimen: 03/15/15 Post Menopausal?: Y Signed (signature on file) SUZETTE Kessler(ASCP) 04/12 1317 This Pap test was evaluated with the assistance of the [employer] Test Imaging System. Due to cytologic findings at the export clerk microscope, comprehensive manual rescreening by a Railroad Dining Car Stewardess may be required. The Pap Smear is a screening test designed to aid in the detection of premalignant and malignant conditions of the uterine cervix. It is not a diagnostic procedure and should not be used as the sole means of detecting cervical cancer. Both false- positive and false- negative reports do occur. Depending on your risk status, a Pap smear should be obtained and evaluated every 1-3 years. END OF REPORT * ML=Testing performed at Main Lab DEPARTMENT OF PATHOLOGY, [address] [place] [address] Harshal Godoy M.D. Director [facility] # [id number] 12 SEE RESULT BELOW Name: TAMIR BOWMAN Remedios : [address]: Carolyn Cullen MD Acct: [id number] Unit: [id number] AGE: 55 Location: [facility] Re04/10/16 SEX: F Status: REG REF SPEC: [id number] YOHANA: 04/10/16-[address]: Carolyn Cullen MD REQ: [id number] RECD: 04/10/16 STATUS: COMP _ SOURCE: URINE SPDESC: ORDERED: Urine Culture Procedure Result Reported Site Urine Culture Final 04/11/16- 1623 ML No growth of clinically significant organisms * ML - MAIN LAB ([facility]) . END OF REPORT * ML=Testing performed at Main Lab DEPARTMENT OF PATHOLOGY, [address] [place] [address] Harshal Godoy M.D. Director [facility] # [id number] 13 PT IS FASTING 14 PT IS FASTING 15 Because ethnic data is not always readily available, this report includes an eGFR for both -Americans and non- Americans. The National Kidney Disease Education Program (NKDEP) does not endorse the use of the MDRD equation for patients that are not between the ages of 18 and 70, are , have extremes of body size, muscle mass, or nutritional status, or are non- or non-. According to the National Kidney Foundation, irrespective of diagnosis, the stage of the disease is based on the level of kidney function: Stage Description GFR(mL/min/1.73 m(2)) 1 Kidney damage with normal or decreased GFR 90 2 Kidney damage with mild decrease in GFR 60-89 3 Moderate decrease in GFR 30-59 4 Severe decrease in GFR 15-29 5 Kidney failure <15 (or dialysis) 16 Desirable <150 Borderline high 150-199 High 200-499 Very High >500 17 Desirable <200 Borderline high 200-239 High >239 18 Low <40 Desirable: 40-60 High: >60 19 Desirable: <100 mg/dL Near Optimal: 100-129 mg/dL Borderline High: 130-159 mg/dL High: 160-189 mg/dL Very High: >189 mg/dL 20 PT IS FASTING 21 Acute inflammation: >10.00 22 PT IS FASTING 23 Desirable <150 Borderline high 150-199 High 200-499 Very High >500 24 Desirable <200 Borderline high 200-239 High >239 25 Low <40 Desirable: 40-60 High: >60 26 Desirable: <100 mg/dL Near Optimal: 100-129 mg/dL Borderline High: 130-159 mg/dL High: 160-189 mg/dL Very High: >189 mg/dL 27 Because ethnic data is not always readily available, this report includes an eGFR for both -Americans and non- Americans. The National Kidney Disease Education Program (NKDEP) does not endorse the use of the MDRD equation for patients that are not between the ages of 18 and 70, are , have extremes of body size, muscle mass, or nutritional status, or are non- or non-. According to the National Kidney Foundation, irrespective of diagnosis, the stage of the disease is based on the level of kidney function: Stage Description GFR(mL/min/1.73 m(2)) 1 Kidney damage with normal or decreased GFR 90 2 Kidney damage with mild decrease in GFR 60-89 3 Moderate decrease in GFR 30-59 4 Severe decrease in GFR 15-29 5 Kidney failure <15 (or dialysis) 28 PT IS FASTING 29 Acute inflammation: >10.00 30 Test Performed by: [place] [id number] Hand Counter: Darío Ware II, M.D., Ph.D. 31 SEE RESULT BELOW Name: TAMIR BOWMAN : [address]: Carolyn Cullen MD Acct: [id number] Unit: [id number] AGE: 54 Location: [facility] Re03/15/15 SEX: F Status: REG REF SPEC: [id number] YOHANA: 03/15/15-[address] [facility] [address]: Carolyn Cullen MD REQ: [id number] RECD: 03/15/15 STATUS: SOUT _ ORDERED: IMAGE ANALYSIS FINAL DIAGNOSIS Negative for Intraepithelial lesion or Malignancy A. Ectocervical/Endocervical Specimen Adequacy: Satisfactory of evaluation Transformation zone component identified Patient Information: HPV: Thin Layer Pap Test w/reflex to high risk HPV RNA testing when ASCUS HPV 16/18 Genotype for HPV pos Actual Specimen Date: 03/15/15 LMP If Unknown: Last Menstrual Period Not Given. Date of Last Specimen: 03/02/14 Signed (signature on file) SUZETTE Starr (ASCP) 03/16 1525 This Pap test was evaluated with the assistance of the COADE Test Imaging System. Due to cytologic findings at the export clerk microscope, comprehensive manual rescreening by a Railroad Dining Car Stewardess may be required. The Pap Smear is a screening test designed to aid in the detection of premalignant and malignant conditions of the uterine cervix. It is not a diagnostic procedure and should not be used as the sole means of detecting cervical cancer. Both false- positive and false- negative reports do occur. Depending on your risk status, a Pap smear should be obtained and evaluated every 1-3 years. END OF REPORT * ML=Testing performed at Main Lab DEPARTMENT OF PATHOLOGY, [address] [place] [address] Harshal Godoy M.D. Director [facility] # [id number] 32 SEE RESULT BELOW Name: BOWMANTAMIR Jacobs : [address]: Carolyn Cullen MD Acct: [id number] Unit: [id number] AGE: 54 Location: [facility] Re03/15/15 SEX: F Status: REG REF SPEC: [id number] YOHANA: 03/15/[address]: Carolyn Cullen MD REQ: [id number] RECD: 03/15/15 STATUS: COMP _ SOURCE: URINE SPDESC: ORDERED: Urine Culture Procedure Result Verified Site Urine Culture Final 03/18/15- 0840 ML Organism 1 STAPHYLOCOCCUS HAEMOLYTICUS Wilmot Count 75-100,000 (Many) CFU/ML 1. STAPHYLOCOCCUS HAEMOLYTICUS M.I.C. RX --------- ------ Penicillin >=0.5 R Gentamicin <=0.5 S Linezolid 2 S Nitrofurantoin <=16 S Oxacillin >=4 R * Quinupristin/Dalfopristin 0.5 S Rifampin <=0.5 S Tetracycline <=1 S Doxycycline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
--- OUTSIDE RECORDS SUMMARY | 2018-06-24 10:44 | XMS REPORT | Continuity of Care Document ---
:1960 External Reference #:[id number] Author Name Carolyn Cullen M.D. Address [address] [place] [address] Care Team Providers Name Role Phone Carolyn Cullen M.D. Primary Care Physician Unavailable Payers Type Date Identification Numbers Payment Provider Subscriber Effective: Policy Number: [id number] [facility] Tamir Bowman 2000 Expires: 2012 Group Number: [id number] [address] PayID: [id number] [place] [address] Effective: 2012 Policy Number: [id number] [employer] Tamir Bowman Group Number: [id number] [address] PayID: [id number] [place] [address] Advance Directives Description No Information Available Problems Date Description Provider Status Onset: 08/24/2011 Pure hypercholesterolemia Radha Kim M.D. Active Onset: 08/24/2011 Arthralgia of the lower leg Radha Kim M.D. Active Onset: 08/24/2011 Obesity Radha Kim M.D. Active Family History Date Family Member(s) Problem(s) Comments Father CHF age 86 07/2015 Mother [place] age 60- of sudden [place]- thought to be due to ruptured aorta [...] 17uni instill 2 465.9 ts sprays in [facility], each PERSONNEL ANALYST-C nostril daily for rhinitis Nystatin 08/05 Hx Cream 660384Vit 30G use twice B37.2 t/GM a day [...] 500mg 20tab 1 by 562.11 s mouth Aubrey - twice a III, PERSONNEL ANALYST-C 01/15 day x days Metronidazole 05/06 Hx Tablets 500mg 20tab one by 562.11 Beto s mouth Aubrey - bidx 10 III, PERSONNEL ANALYST-C 01/15 days- not drink alcohol- please fill [...] Susana nty mouth Julian, - every 4-6 PERSONNEL ANALYST-C 10/11 hours needed for pain Ciprofloxacin HCL 06/09 Hx Tablets 500mg 20tab take 1 s tablet by Julian, - mouth PERSONNEL ANALYST-C 10/11 twice day x 10 days Metronidazole 06/09 Hx Tablets 500mg 30tab take 1 s tablet by Julian, - mouth PERSONNEL ANALYST-C 10/11 times a day x 10 days Vitamin D3 06/01 Hx Capsules 1000Unit 2000 Iu Per Day - Shailesh Cullen, - Vitamin D M.D. 03/15 Deficien y Nystatin 03/02 Hx Cream 838597Pij 30G use twice t/GM a day to PJackie Cullen, - yeast M.D. 03/15 rash needed for up to 2 weeks Benzonatate 02/19 Hx Capsules 100mg 30cap 1 po tid 466.0 Shawnti R. /2012 s prn cough Storm, - PERSONNEL ANALYST-C 03/02 Azithromycin 02/19 Hx Tablets 250mg 6tabs 2 po 466.0 Shawnti R. /2012 today , - then 1 po PERSONNEL ANALYST-C 03/02 daily for 4 days Methylprednisolon 02/19 Hx Tablets 4mg 1pack take 466.0 Shawnti R. e Dose Pack oraly per , - package PERSONNEL ANALYST-C 03/02 direction s Ventolin HFA 02/19 Hx Aerosol 108(90Bas 18gm inhale 466.0 Shawnti R. e) two puffs , - mcg/Act by mouth PERSONNEL ANALYST-C 03/02 every hours as needed for wheeze Ondansetron Odt 05/08 Hx Tablets 4mg 20tab 1 po tid 079.99 Shawnti R. /2011 Dispers s prn , - nausea PERSONNEL ANALYST-C 03/02 Nabumetone 07/20 Hx Tablets 500mg 60tab 1 po bid 719.47 Radha s Bill Kim, - M.D. 03/02 Robitussin ac 07/27 Hx 150ml 1-2 tsp 465.9 [facility] , - prn PERSONNEL ANALYST-C 07/20 cough/sury n Guaifenesin-Codei 01/14 Hx Solution [...] e gm 4 Hours Storm, - prn PERSONNEL ANALYST-C 02/19 Robitussin A-C 02/20 Hx Syrup 100mg;10m [...] A Day For Britni, - 10 Days STRAND GALVANIZER 11/17 Plaquenil Hx Tablets 200mg Carla, /0000 Toribio - 04/10 Immunizations CPT Code Status Date Vaccine Lot # [id number] Given 10/12/2014 Tdap (Adacel) [id number] Given 11/17/2002 DT (Adult) [id number] Given 09/09/1990 Tetanus Vital Signs Date Vital [...] Mass Index) 41.4 kg/m2 Last Menstrual Period 1020410 02/19/2013 3:01pm Weight 244.00 lb Weight 110.678 [...] Mass Index) 40.8 kg/m2 Last Menstrual Period 3070238 03/08/2005 10:28am Weight 229.00 lb Weight 103.874 [...] Mass Index) 39.6 kg/m2 Last Menstrual Period 4191963 09/19/2002 11:41am Weight 227.00 lb Weight 103.000 kg BP Systolic 130 mmHg BP Diastolic 78 mmHg Body Temperature 96.9 F 06/02/2002 11:53am Weight 227.00 lb Weight 103.000 kg BP Systolic 120 mmHg BP Diastolic 70 mmHg Body Temperature 99.0 F Respiratory Rate 18 /min Results Test Date Facility Test Result H/L Range Note Urine Culture And 06/03/2018 [facility] Urine Culture SEE RESULT 1 Sensitivities [phone] BELOW Urine DIP 06/03/2018 [facility] Leukocytes + Neg (607)- - Urine Nitrites NEG Neg Urobilinogen NORM Norm Total Protein, Urine TRACE Neg Urine pH 6 5-6 Urine Blood 250 High Neg Specific [place] 1.020 1.01-1.02 Urine Ketones NEG Neg Urine Bilirubin NEG Neg Urine Glucose NORM Norm Urine DIP 08/05/2017 [facility] House [facility] Leukocytes ++ Neg (607)- - Urine Nitrites neg Neg Urobilinogen norm Norm Total Protein, Urine trace Neg Urine pH 5 5-6 Urine Blood trace Neg Specific [place] 1.020 1.01-1.02 Urine Ketones neg Neg Urine Bilirubin neg Neg Urine Glucose norm Norm Laboratory test 07/23/2017 [facility] TSH (Thyroid 3.55 0.34-5.60 finding [phone] Stimulating mcIU/mL Horm) Free T4 0.90 ng/dL 0.61-1.12 Comp Metabolic Panel 07/23/2017 [facility] Sodium 139 mmol/L 133-145 [phone] Potassium 4.3 mmol/L 3.5-5.0 Chloride 107 mmol/L [...] 97.6 >60 2 CBC Auto Diff 07/23/2017 [facility] White Blood 6.5 10^3/uL 3.5-10.8 [phone] Count Red Blood Count 4.64 10^6/uL 4.0-5.4 [...] Blood Cells % 0.2 Laboratory test 07/23/2017 [facility] Rheumatoid Factor 144 IU/mL <15 3 finding [phone] Erythrocyte Sed Rate 38 mm/Hr High 0-30 C Reactive Protein 13.64 mg/L High < 5.00 4 Vitamin D Total 25(Oh) 25.3 ng/mL 20-50 Lipid Profile 07/23/2017 [facility] Triglycerides 159 mg/dL 5 (Trig/Chol/HDL) [phone] Cholesterol 213 mg/dL 6 HDL Cholesterol 35.8 mg/dL 7 LDL Cholesterol 145 mg/dL 8 Urine DIP 10/23/2016 [facility] House Lab Leukocytes TRACE Neg (607)- - Urine Nitrites NEG Neg Urobilinogen NORM Norm Total Protein, Urine NEG Neg Urine pH 7 High 5-6 Urine Blood TRACE Neg Specific [place] 1.010 1.01-1.02 Urine Ketones NEG Neg Urine Bilirubin NEG Neg Urine Glucose NORM Norm Urinalysis Profile 08/14/2016 [facility] Urine Color Yellow [phone] Urine Appearance Cloudy Urine Specific [place] 1.024 1.010-1.030 Urine pH 6.0 5-9 Urine Urobilinogen Negative Negative Urine Ketones Negative Negative Urine Protein Negative Negative Urine Leukocytes Trace Negative Urine Blood 1+ Negative Urine Nitrite Negative Negative Urine Bilirubin Negative Negative Urine Glucose Negative Negative Urine White Blood Cell 1+(6-10/hpf) Absent Urine Red Blood Cell 2+(6-10/hpf) Absent Urine Bacteria 1+ Absent Urine Squamous Epithelial Cell Present Absent Laboratory test 08/14/2016 [facility] Urine Culture SEE RESULT 9 finding [phone] BELOW Urine DIP 08/14/2016 [facility] House Lab Leukocytes + Neg (607)- - Urine Nitrites neg Neg Urobilinogen norm Norm Total Protein, Urine pos Neg Urine pH 5 5-6 Urine Blood 50 High Neg Specific [place] 1.020 1.01-1.02 Urine Ketones neg Neg Urine Bilirubin neg Neg Urine Glucose norm Norm Laboratory test 06/28/2016 [facility] Cytology Non- Meat Cutting Block Repairer SEE RESULT 10 finding [phone] BELOW Laboratory test 06/01/2016 [facility] TSH (Thyroid 2.50 0.34- finding [phone] Stimulating Horm) mcIU/mL 5.60 Free T4 0.97 ng/dL 0.61-1.12 Laboratory test 04/10/2016 [facility] Cytology SEE RESULT 11 finding [phone] BELOW Urinalysis Profile 04/10/2016 [facility] Urine Color Yellow [phone] Urine Appearance Cloudy Urine Specific [place] 1.024 1.010-1.030 Urine pH 5.0 5-9 Urine [...] Oxalate Cryst Present Absent Laboratory test 04/10/2016 [facility] Urine Culture SEE RESULT 12 finding [phone] BELOW Urine DIP 04/10/2016 In House Lab Leukocytes ++ Neg (607)- - Urine Nitrites NEG Neg Urobilinogen NORM Norm Total Protein, Urine NEG Neg Urine pH 5 5-6 Urine Blood 50 High Neg Specific [place] 1.02 1.01-1.02 Urine Ketones NEG Neg Urine Bilirubin NEG Neg Urine Glucose NORM Norm Laboratory test 03/28/2016 [facility] Vitamin D 31.3 30-50 13, 14 finding [phone] Total ng/mL 25(Oh) CMP - 03/28/2016 [facility] Sodium 138 133-145 Comprehensive [phone] mmol/L Metabolic Potassium 4.0 mmol/L 3.5-5.0 Chloride [...] Egfr 104.4 >60 15 Lipid Panel 03/28/2016 [facility] Triglycerides 163 mg/dL 16 [phone] Cholesterol 207 mg/dL 17 HDL Cholesterol 37.7 mg/dL 18 LDL Cholesterol 137 mg/dL 19 CBC W/Auto 03/28/2016 [facility] White Blood 6.5 10^3 /uL 3.5-10.8 Differential [phone] Count Red Blood Count 4.84 10^6/uL 4.0-5.4 [...] Blood Cells % 0.9 Laboratory test 03/28/2016 [facility] Erythrocyte Sed 37 mm/Hr High 0-30 20 finding [phone] Rate C Reactive Protein 17.47 mg/L High < 5.00 21 Laboratory test 09/21/2015 [facility] Vitamin D Total 26.2 Low 30-50 22 finding [phone] 25(Oh) ng/mL Lipid Panel 09/21/2015 [facility] Triglycerides 208 mg/dL 23 [phone] Cholesterol 206 mg/dL 24 HDL Cholesterol 33.0 mg/dL 25 LDL Cholesterol 131 mg/dL 26 CBC W/Auto 09/21/2015 [facility] White Blood 6.7 10^3 /uL 3.5-10.8 Differential [phone] Count Red Blood Count 4.83 10^6/uL 4.0-5.4 [...] Cells % 0.2 CMP - Comprehensive 09/21/2015 [facility] Sodium 137 mmol/L 133-145 Metabolic [phone] Potassium 4.2 mmol/L 3.5-5.0 Chloride 104 mmol/L [...] Egfr 98.3 >60 27 Laboratory test 09/21/2015 [facility] Erythrocyte Sed 33 mm/Hr High 0-30 28 finding [phone] Rate C Reactive Protein 14.74 mg/L High < 5.00 29 Rheumatoid Factor 91 IU/mL <15 30 Urinalysis Profile 04/15/2015 [facility] Urine Color Straw [phone] Urine Appearance Clear Urine Specific [place] 1.003 Low 1.010-1.030 Urine pH 7.0 5-9 Urine Urobilinogen Negative Negative Urine Ketones Negative Negative Urine Protein Negative Negative Urine Leukocytes Negative Negative Urine Blood Negative Negative Urine Nitrite Negative Negative Urine Bilirubin Negative Negative Urine Glucose Negative Negative Laboratory test 03/15/2015 [facility] Cytology SEE RESULT 31 finding [phone] BELOW Urinalysis Profile 03/15/2015 [facility] Urine Color Yellow [phone] Urine Appearance Clear Urine Specific [place] 1.018 1.010-1.030 Urine pH 6.0 5-9 Urine Urobilinogen Negative Negative Urine Ketones Negative Negative Urine Protein Negative Negative Urine Leukocytes Negative Negative Urine Blood 1+ Negative Urine Nitrite Negative Negative Urine Bilirubin Negative Negative Urine Glucose Negative Negative Urine White Blood Cell Absent Absent Urine Red Blood Cell Trace(0-2/hpf) Absent Urine Bacteria 1+ Absent Urine Squamous Epithelial Cell Present Absent Laboratory test 03/15/2015 [facility] Urine Culture SEE RESULT 32 finding [phone] BELOW Urine DIP 03/15/2015 In House Lab Specific 1.015 1.01-1 (607)- - [place] .02 Urine pH 5 5-6 Leukocytes trace Neg Urine Nitrites neg Neg Total Protein, Urine neg Neg Urine Glucose norm Norm Urine Ketones neg Neg Urobilinogen norm Norm Urine Bilirubin neg Neg Urine Blood 50 High Neg Laboratory test 03/09/2015 In House Lab Strep Screen NEG Neg finding (607)- - CBC Auto Diff 03/01/2015 [facility] White Blood 10.3 4.8-10.8 [phone] Count 10^3/uL Red Blood Count 4.90 10^6/uL [...] Blood Cells % 0 Laboratory test 03/01/2015 [facility] Erythrocyte Sed 35 mm/Hr High 0-30 33 finding [phone] Rate C Reactive Protein 15.09 mg/L High < 5.00 34 Comp Metabolic Panel 03/01/2015 [facility] Sodium 139 mmol/L 133-145 [phone] Potassium 4.7 mmol/L 3.5-5.0 Chloride 105 mmol/L [...] Egfr 90.5 >60 35 Laboratory test 03/01/2015 [facility] Rheumatoid Factor 57 IU/mL <15 36 finding [phone] Vitamin D Total 25(Oh) 19.6 ng/mL Low 30-50 37 Laboratory test 11/25/2014 [facility] TSH (Thyroid 2.94 IU/mL 0.34-5.60 finding [phone] Stimulating Horm) Free T4 0.86 ng/mL 0.61-1.12 CBC No Diff 11/25/2014 [facility] White Blood 8.5 10^ 3/uL 4.8-10.8 [phone] Count Red Blood Count 4.54 10^6/uL 4.0-5.4 Hemoglobin 13.6 g/dL 12.0-16.0 Hematocrit 41 % 35-47 Mean Corpuscular Volume 90 fL 80-97 Mean Corpuscular Hemoglobin 30 pg 27-31 Mean Corpuscular HGB Conc 33 g/dL 31-36 Red Cell Distribution Width 15 % 10.5-15 Platelet Count 230 10^3/uL 150-450 Mean Platelet Volume 9 um3 7.4-10.4 Urinalysis Profile 10/12/2014 [facility] Urine Color Yellow [phone] Urine Appearance Turbid Urine Specific [place] 1.025 1.010-1.030 Urine pH 5.0 5-9 Urine [...] Crystals Present Absent Urine Culture And 10/12/2014 [facility] Urine Culture (SEE NOTE) 38 Sensitivities [phone] Urine DIP 10/12/2014 [facility] House Lab Specific 1.020 1.01- (607)- - [place] 1.02 Urine pH 5 5-6 Leukocytes + Neg Urine Nitrites NEG Neg Total Protein, Urine POS Neg Urine Glucose NORM Norm Urine Ketones NEG Neg Urobilinogen NORM Norm Urine Bilirubin NEG Neg Urine Blood ABOUT 50 Neg Urine DIP 06/09/2014 In House Lab Specific [place] 1.015 1.01-1.02 (607)- - Urine pH 6 5-6 Leukocytes tace Neg Urine Nitrites neg Neg Total Protein, Urine neg Neg Urine Glucose neg Norm Urine Ketones neg Neg Urobilinogen norm Norm Urine Bilirubin + Neg Urine Blood trace Neg Laboratory test 06/09/2014 [facility] Lipase 18 U/L 11.0-82.0 finding [phone] Amylase 26 U/L Low 29-103 Comp Metabolic Panel 06/09/2014 [facility] Sodium 139 mmol/L 133-145 [phone] Potassium 4.0 mmol/L 3.7-5.6 Chloride 103 mmol/L [...] Egfr 91.8 >60 39 CBC Auto 06/09/2014 [facility] White Blood 12.7 10^3/ uL High 4.8-10.8 Diff [phone] Count Red Blood Count 4.92 10^6/uL 4.0-5.4 [...] Cells % 0 Vitamin D, 25 04/01/2014 [facility] 25-Hydroxy Vitamin <4.0 ng/mL Hydroxy [phone] D2 25-Hydroxy Vitamin D3 30 ng/mL 25-Hydroxy Vitamin D Total 30 ng/mL 40 Laboratory test 04/01/2014 [facility] Erythrocyte Sed 33 mm/Hr High 0-30 finding [phone] Rate C Reactive Protein 19.38 mg/L High < 5.00 41 Rheumatoid Factor 50 IU/mL <15 42 Follicle Stimulating Hormone 27.7 IU/mL 43 Surgical Pathology 03/30/2014 [facility] S RUN DATE: 49 [phone] 03/31/ <SEE NOTE> Urinalysis Profile 03/02/2014 [facility] Urine Color Green [phone] Urine Appearance Turbid Urine Specific [place] 1.030 1.010-1.030 Urine pH 5.0 5-9 Urine [...] Crystals Present Absent Urine Culture And 03/02/2014 [facility] Urine Culture (SEE NOTE) 45 Sensitivities [phone] Laboratory test 03/02/2014 [facility] Cytology RUN DATE: 46 finding [phone] 03/03/ <SEE NOTE> HPV High Risk 03/02/2014 [facility] Human See Comment 47 [phone] Papillomavirus Source HPV High Risk Type 16, PCR Negative Negative HPV High Risk Type 18, PCR Negative Negative HPV Other Risk types Negative Negative 48 Urine DIP 03/02/2014 In House Lab Specific [place] 1.03 High 1.01-1.02 (607)- - Urine pH 5 5-6 Leukocytes ++ Neg Urine Nitrites neg Neg Total Protein, Urine trace Neg Urine Glucose norm Norm Urine Ketones neg Neg Urobilinogen norm Norm Urine Bilirubin neg Neg Urine Blood 50 High Neg Laboratory 02/09/2014 [facility] Hepatitis C Nonreactive Nonreactive 49 test finding [phone] Antibody TSH (Thyroid Stimulating Horm) 2.40 IU/mL 0.34-5.60 Free T4 0.92 ng/mL 0.61-1.12 CBC - Complete 02/09/2014 [facility] White Blood 6.0 10^3/uL 4.8-10.8 Blood Count [phone] Count Red Blood Count 4.58 10^6/uL 4.0-5.4 Hemoglobin 13.1 g/dL 12.0-16.0 Hematocrit 39 % 35-47 Mean Corpuscular Volume 85 fL 80-97 Mean Corpuscular Hemoglobin 29 pg 27-31 Mean Corpuscular HGB Conc 34 g/dL 31-36 Red Cell Distribution Width 15 % 10.5-15 Platelet Count 202 10^3/uL 150-450 Mean Platelet Volume 8 um3 7.4-10.4 Lipid Panel 02/09/2014 [facility] Triglycerides 162 mg/dL 50 [phone] Cholesterol 201 mg/dL 51 HDL Cholesterol 37.3 mg/dL 52 LDL Cholesterol 131 mg/dL 53 CMP - Comprehensive 02/09/2014 [facility] Sodium 139 mmol/L 133-145 Metabolic [phone] Potassium 4.1 mmol/L 3.7-5.6 Chloride 106 mmol/L [...] 103.6 >60 54 Comp Metabolic Panel 05/08/2012 [facility] Sodium 137 mmol/L 135-145 [phone] Potassium 3.9 mmol/L 3.5-5.0 Chloride 103 mmol/L [...] 96.5 > 60 57 Laboratory test 05/08/2012 [facility] Amylase 32 U/L 20-120 58 finding [phone] Lipase 23 U/L 22-51 CBC Auto Diff 05/08/2012 [facility] White Blood 6.7 CUMM 4.8-10.8 [phone] Count Red Cell Count 4.71 CUMM 4.2-5.4 [...] finding (607)- - [facility] Surgical Pathology 09/21/2009 [facility] Surgical --- -------- 59 [phone] Pathology ----- <SEE NOTE> Laboratory test 12/23/2007 [facility] Cytology ------ ----- 60 finding [phone] ----- <SEE NOTE> Laboratory test 02/20/2007 In House Lab Strep Screen NEG Neg finding (607)- - Thyroid Panel 06/09/2006 [facility] Thyroxine 9.8 g /dL 5-12 [phone] TSH 2.45 MIU/ML 0.34-5.60 Free Thyroxine 0.82 ng/dL 0.58-1.64 CBC With 06/09/2006 [facility] White Blood 6.2 CUMM 4.8-10.8 Electronic Diff [phone] Count Abs Basophils 0 0-0.2 Abs Eosinophils [...] 16 % High 10.5-15 Lipid Profile 08/10/2005 [facility] Cholesterol 220 mg/dL High Less 61 (Trig/Chol/HDL) [phone] Than 200 Triglyceride 105 mg/dL 40-200 High Density Lipoprotein 42 mg/dL 40-60 Low Density Lipoprotein 157 mg/dL High Less Than 100 62 Cholesterol/HDL Ratio 5.24 AVERAGE High 1-4.44 Laboratory test 08/10/2005 [facility] TSH 2.56 MIU/ ML 0.34-5.60 finding [phone] CBC With 08/10/2005 [facility] White Blood 7.3 CUMM 4.8-10.8 Electronic Diff [phone] Count Abs Basophils 0 0-0.2 Abs Eosinophils [...] WDTH 15 % 10.5-15 Laboratory test 08/10/2005 [facility] Free Thyroxine 0.81 ng/dL 0.58-1.64 finding [phone] Comp Metabolic 08/10/2005 [facility] One Over 1.11 Panel [phone] Creatinine Anion Gap 7.0 mmol/L 2-11 63 [...] 8-20 Creatinine 0.9 mg/dL 0.5-1.4 Cytology 08/08/2005 [facility] Cytology Run: 17 64 [phone] <SEE NOTE> Urine DIP 08/07/2005 In House Lab Leukocytes NEG Neg (607)- - Urine Nitrites NEG Neg Urine pH 6 5-6 Total Protein, Urine NL Neg Urine Glucose NL Norm Urine Ketones NL Neg Urobolinogen NL Norm Urine Bilirubin NL Neg Urine Blood NL Neg Specific [place] N/A Low 1.01-1.02 Laboratory test 08/07/2005 [facility] Thin Layer Pap REC'D-SEE finding [phone] W/Reflex To HPV IMAGE For ASCUS Laboratory [...] Neg Urine Blood 250 High Neg Specific [place] NA Low 1.01-1.02 1 SEE RESULT BELOW Name: TAMIR BOWMAN : [address]: Carolyn Cullen MD Acct: [id number] Unit: [id number] AGE: 58 Location: [facility] Re06/03/18 SEX: F Status: REG REF SPEC: [id number] YOHANA: 06/03/18-1411 [facility] [address]: Carolyn Cullen MD REQ: [id number] RECD: 06/03/18 STATUS: COMP _ SOURCE: URINE SPDESC: ORDERED: Urine Culture COMMENTS: [id number] Urine Source: Clean Catch Procedure Result Reported Site Urine Culture Final 06/05/18- 46 ML No growth of clinically significant organisms * ML - Main Lab . END OF REPORT DEPARTMENT OF PATHOLOGY, [address] [place] [address] Harshal Godoy M.D. Director [facility] # [id number] 2 Because ethnic data is not always [...] <15 (or dialysis) 3 Test Performed by: [address] [address] 4 Acute inflammation: >10.00 5 Desirable: <150 Borderline High: 150-199 High: 200-499 Very High: >500 6 Desirable: <200 Borderline High: 200-239 High: >239 7 Low: <40 Desirable: 40-60 High: >60 8 Desirable: <100 Near Optimal: 100-129 Borderline High: 130-159 High: 160-189 Very High: >189 9 SEE RESULT BELOW Name: TAMIR BOWMAN : [address]: Carolyn Cullen MD Acct: [id number] Unit: [id number] AGE: 56 Location: [facility] Re08/14/16 SEX: F Status: REG REF SPEC: [id number] YOHANA: 08/14/16-[address]: Carolyn Cullen MD REQ: [id number] RECD: 08/14/16 STATUS: COMP _ SOURCE: URINE SPDESC: ORDERED: Urine Culture Procedure Result Reported Site Urine Culture Final 08/15/16- 1632 ML No growth of clinically significant organisms * ML - MAIN LAB ([facility]) . END OF REPORT * ML=Testing performed at Main Lab DEPARTMENT OF PATHOLOGY, [address] [place] [address] Harshal Godoy M.D. Director [facility] # [id number] 10 SEE RESULT BELOW Name: TAMIR BOWMAN Remedios : [address]: Romie Shannon MD Acct: [id number] Unit: [id number] AGE: 56 Location: THYROID Re06/28/16 SEX: F Status: REG REF SPEC: [id number] YOHANA: 06/28/16-[address]: Meg Abernathy MD REQ: [id number] RECD: 06/28/16 STATUS: HANNA CHRISTIE DR: Romie Cullen MD _ ORDERED: FN ASP DEEP/2, FNA Imme St Add, FNA IMMEDIATE S/2 FINAL DIAGNOSIS 1) Thyroid, right mid, 1.1cm, Ultrasound guided, fine needle aspiration: Benign thyroid nodule- colloid/hyperplastic (Cherry Log class II). 2) Thyroid, right mid, 1.0cm, Ultrasound guided, fine needle aspiration: Benign thyroid nodule-colloid/hyperplastic (Cherry Log class II). 1) The specimen demonstrates moderate [...] performed at Main Lab DEPARTMENT OF PATHOLOGY, [address] [place] [address] Harshal Godoy M.D. Director [facility] # [id number] RUN DATE: 06/30/16 [facility] LIVE PAGE 2 Patient: PEPPERTAMIR Remedios [id number] (Continued) SPECIMEN COMMENTS (Continued) should be based [...] performed at Main Lab DEPARTMENT OF PATHOLOGY, [address] [place] [address] Harshal Godoy M.D. Director [facility] # [id number] 11 SEE RESULT BELOW Name: TAMIR BOWMAN : [address]: Carolyn Cullen MD Acct: [id number] Unit: [id number] AGE: 55 Location: [facility] Re04/10/16 SEX: F Status: REG REF SPEC: [id number] YOHANA: 04/10/16-13[address] [facility] [address]: Carolyn Cullen MD REQ: [id number] RECD: 04/10/16 STATUS: SOUT _ ORDERED: IMAGE ANALYSIS, HPV 16/18 GENE COMMENTS: [id number] FINAL DIAGNOSIS Negative for Intraepithelial lesion or [...] was evaluated with the assistance of the [employer] Test Imaging System. Due to cytologic findings at the hothouse worker microscope, comprehensive manual rescreening by a Other Spatial Scientist may be required. The Pap Smear is [...] performed at Main Lab DEPARTMENT OF PATHOLOGY, [address] [place] [address] Harshal Godoy M.D. Director [facility] # [id number] 12 SEE RESULT BELOW Name: TAMIR BOWMAN Remedios : [address]: Carolyn Cullen MD Acct: [id number] Unit: [id number] AGE: 55 Location: [facility] Re04/10/16 SEX: F Status: REG REF SPEC: [id number] YOHANA: 04/10/16-[address]: Carolyn Cullen MD REQ: [id number] RECD: 04/10/16 STATUS: COMP _ SOURCE: URINE SPDESC: ORDERED: Urine Culture Procedure Result Reported Site Urine Culture Final 04/11/16- 1623 ML No growth of clinically significant organisms * ML - MAIN LAB ([facility]) . END OF REPORT * ML=Testing performed at Main Lab DEPARTMENT OF PATHOLOGY, [address] [place] [address] Harshal Godoy M.D. Director [facility] # [id number] 13 PT IS FASTING 14 PT IS [...] Acute inflammation: >10.00 30 Test Performed by: [place] [id number] Tool And Die Assembler: Darío Ware II, M.D., Ph.D. 31 SEE RESULT BELOW Name: TAMIR BOWMAN : [address]: Carolyn Cullen MD Acct: [id number] Unit: [id number] AGE: 54 Location: [facility] Re03/15/15 SEX: F Status: REG REF SPEC: [id number] YOHANA: 03/15/15-1417 [facility] DR: Carolyn Cullen MD REQ: [id number] RECD: 03/15/15 STATUS: SOUT _ ORDERED: IMAGE [...] was evaluated with the assistance of the [employer] Test Imaging System. Due to cytologic findings at the hothouse worker microscope, comprehensive manual rescreening by a Other Spatial Scientist may be required. The Pap Smear is [...] performed at Main Lab DEPARTMENT OF PATHOLOGY, [address] [place] [address] Harshal Godoy M.D. Director [facility] # [id number] SEE RESULT BELOW Name: BOWMANTAMIR Jacobs : [address]: Carolyn Cullen MD Acct: [id number] Unit: [id number] AGE: 54 Location: [facility] Re03/15/15 SEX: F Status: REG REF SPEC: [id number] YOHANA: 03/15/[address]: Carolyn Cullen MD REQ: [id number] RECD: 03/15/15 STATUS: COMP _ SOURCE: URINE SPDESC: ORDERED: Urine Culture Procedure Result Verified Site Urine Culture Final 03/18/15- 0840 ML Organism 1 STAPHYLOCOCCUS HAEMOLYTICUS [place] Count 75-100,000 (Many) CFU/ML 1. STAPHYLOCOCCUS HAEMOLYTICUS [...] These antibiotics are not available in the [facility] Formulary Contact the Microbiology Department for any additional antibiotic reporting. * ML - MAIN LAB ([facility]) . END OF REPORT * ML=Testing performed at Main Lab DEPARTMENT OF PATHOLOGY, [address] [place] [address] Harshal Godoy M.D. Director [facility] # [id number] FASTING 34 Acute inflammation: >10.00 35 [...] <15 (or dialysis) 36 Test Performed by: [address] [address] Tool And Die Assembler: Darío Ware II, M.D., Ph.D. 37 FASTING 38 RUN DATE: 10/15/14 [facility] LAB LIVE PAGE 1 RUN TIME: [address] [place] [address] Specimen Inquiry Name: TAMIR BOWMAN Remedios : [address]: Carolyn Cullen MD Acct: [id number] Unit: [id number] AGE: 54 Location: [facility] Re10/12/14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
[2018-06-24] MEDS ORDERED: Clindamycin 900 MG/D5W BAG(*) 900 MG/50 ML BAG IVPB ONE (10:54)
[2018-06-24] MEDS ORDERED: Sodium Citrate/Citric Acid* 15 ML UDC ONE (10:54)
[2018-06-24] MEDS ORDERED: Midazolam* 1 MG/ML 2 ML VIAL (2 MG) ONE (11:47)
[2018-06-24] MEDS ORDERED: fentaNYL* 50 MCG/ML 2 ML VIAL (100 MCG VIAL) ONE ×4 (11:47→17:25)
[2018-06-24] MEDS ORDERED: Bupivacaine 0.5% SDV PF* 30ML VIAL ONE (12:46)
[2018-06-24] MEDS ORDERED: Propofol* 10 MG/ML 20 ML BTL IV PUSH ONE (13:01)
[2018-06-24] MEDS ORDERED: Rocuronium* 10 MG/ML VIAL ONE (13:02)
[2018-06-24] MEDS ORDERED: Tranexamic Acid 1,000 MG/10 ML SDV IV ONE (13:30)
[2018-06-24] MEDS ORDERED: KETAMINE HCL* 50 MG/ML 10 ML VIAL ONE (13:38)
[2018-06-24] MEDS ORDERED: Dexamethasone IV* 4 MG/ML 1 ML (4 MG) ONE (13:54)
[2018-06-24] MEDS ORDERED: Naloxone* 0.4 MG/ML 1 ML VIAL IV PRN (14:13)
[2018-06-24] MEDS ORDERED: Ketorolac INJ* 30 MG/ML 1 ML VIAL ONE (16:18)
[2018-06-24] MEDS ORDERED: Ondansetron INJ* 2 MG/ML VIAL IV PRN (16:21)
[2018-06-24] MEDS ORDERED: oxyCODONE/Acetamin 5/325 MG* TAB PO PRN (16:21)
[2018-06-24] MEDS ORDERED: traMADol TAB* 50 MG PO PRN (16:21)
[2018-06-24] MEDS ORDERED: Ondansetron TAB* 4 MG PO PRN (16:21)
[2018-06-24] MEDS ORDERED: diPHENhydraMINE PO* 25 MG PO PRN (16:21)
[2018-06-24] MEDS ORDERED: Cyclobenzaprine TAB* 10 MG PO PRN (16:21)
[2018-06-24] MEDS ORDERED: Magnesium Hydroxide LIQ* 30 ML UDC PO PRN (16:21)
[2018-06-24] MEDS ORDERED: Morphine INJ* 4 MG/ML 1 ML SYRINGE (NEW SYRINGE VERSION) IV PRN (16:21)
[2018-06-24] MEDS ORDERED: Polyethylene Glycol 3350* 17 GM PACKET PO PRN (16:21)
[2018-06-24] MEDS ORDERED: Bisacodyl SUPP* 10 MG SUPP PR PRN (16:21)
[2018-06-24] MEDS ORDERED: Glycopyrrolate IV* 0.2 MG/ML 1 ML VIAL ONE (16:31)
[2018-06-24] MEDS ORDERED: Neostigmine Methylsulfate* 1 MG/ML 10 ML VIAL (1 mg/ml) ONE (16:31)
[2018-06-24] MEDS ORDERED: Ondansetron INJ* 2 MG/ML VIAL ONE (16:33)
[2018-06-24] MEDS: fentaNYL* 50 MCG/ML 2 ML VIAL (100 MCG VIAL) IV PRN ×3 (17:07→18:01)
--- NOTE | 2018-06-24 17:48 | RAD ---
Indication: Bilateral total knee replacement AP and lateral views of both knees are reviewed. The left knee demonstrates bipolar left knee replacement in satisfactory position. No loosening is noted. The right knee demonstrates bipolar right knee replacement. Components appear to be well seated. No periprosthetic fracture is noted. IMPRESSION: There are bilateral bipolar knee replacement in place without loosening. No evidence of periprosthetic fracture is noted.
[2018-06-24] MEDS ORDERED: Acetaminophen IV 1GM/100ML * 100 ML ONE (18:25)
[2018-06-24] MEDS ORDERED: Labetalol IV* 5 MG/ML 20 ML VIAL ONE (19:06)
[2018-06-24] MEDS ORDERED: Warfarin TAB(*) 6 MG PO ONE (21:00)
[2018-06-24] MEDS: oxyCODONE TAB* 5 MG TAB PO PRN (21:16)
[2018-06-24] MEDS: Docusate CAP* 100 MG PO SCH (21:17)
[2018-06-24] MEDS: Clindamycin 600 MG IVPREMIX(* 600 MG/50 ML SDV IV SCH (21:20)
[2018-06-24] MEDS: Magnesium Hydroxide LIQ* 30 ML UDC PO SCH (21:41)
[2018-06-25] MEDS: oxyCODONE TAB* 5 MG TAB PO PRN ×4 (01:15→16:36)
[2018-06-25] MEDS: Clindamycin 600 MG IVPREMIX(* 600 MG/50 ML SDV IV SCH ×2 (05:05→12:40)
[2018-06-25] MEDS: Acetaminophen TAB* 325 MG PO SCH ×3 (06:53→21:34)
[2018-06-25 07:11] LABS: Hematocrit 39 % (35-47); Hemoglobin 12.8 g/dl (12.0-16.0); Mean Platelet Volume 8.2 um3 (7.4-10.4); Platelet Count 196 10^3/ul (150-450)
[2018-06-25 07:20] LABS: INR 1.05 (0.77-1.02)
[2018-06-25 07:37] LABS: EGFR Non-African American 80.3 (>60)
[2018-06-25] MEDS: Magnesium Hydroxide LIQ* 30 ML UDC PO SCH ×2 (08:05→21:21)
[2018-06-25] MEDS: Docusate CAP* 100 MG PO SCH ×2 (08:06→21:20)
[2018-06-25] MEDS: Enoxaparin(*) 40 MG/0.4 ML SYR SUBCUT SCH (12:41)
[2018-06-25] MEDS: oxyCODONE/Acetamin 5/325 MG* TAB PO PRN ×2 (13:43→21:20)
--- NOTE | 2018-06-25 15:31 | PN ---
Progress Note - Progress Note Date of Service: 06/25/18 SOAP: Subjective: [] Patient was seen and examined at bedside. She feels well with well controlled knee pain, described as soreness. Denies CP, SOB, dizziness, nausea. Objective: []General: Well appearing, NAD BL LE: dressings CDI. Thighs soft, DF/PF intact. Dp2+. Sensation intact distally Calves are supple and nontender without erythema, edema or palpable cords Assessment: []Bilateral total knee replacements Plan: []WBAT PT/OT lovenox, coumadin 8 mg today Vital Signs Temp 98.1 F 06/25/18 11:09 Pulse 77 06/25/18 11:09 Resp 18 06/25/18 13:43 BP 120/58 06/25/18 11:09 Pulse Ox 94 06/25/18 11:09 Intake & Output 06/24/18 06/25/18 06/25/18 18:59 06:59 18:59 Intake Total 8501 623 9203 Output Total 255 3850 300 Balance 1495 -2900 1750 Weight 244 lb Intake: IV Fluids 1750 250 985 CLINDAMYCIN 900 MG 50 LR 1700 250 985 IVPB 55 LR 55 Oral 700 1010 Output: Urine 300 Reyes 225 3850 Residual 30 Reyes 16 Fr 30 Other: Estimated Blood Loss 200 Comment Laboratory Last Values Hgb 12.8 g/dl (12.0-16.0) 06/25/18 06:26 Hct 39 % (35-47) 06/25/18 06:26 Plt Count 196 10^3/ul (150-450) 06/25/18 06:26 MPV 8.2 um3 (7.4-10.4) 06/25/18 06:26 INR (Anticoag Therapy) 1.05 (0.77-1.02) H 06/25/18 06:26 Sodium 139 mmol/L (135-145) 06/25/18 06:26 Potassium 4.5 mmol/L (3.5-5.0) 06/25/18 06:26 Chloride 103 mmol/L (101-111) 06/25/18 06:26 Carbon Dioxide 30 mmol/L (22-32) 06/25/18 06:26 Anion Gap 6 mmol/L (2-11) 06/25/18 06:26 BUN 13 mg/dL (6-24) 06/25/18 06:26 Creatinine 0.74 mg/dL (0.51-0.95) 06/25/18 06:26 Est GFR ( Amer) 97.2 (>60) 06/25/18 06:26 Est GFR (Non-Af Amer) 80.3 (>60) 06/25/18 06:26 BUN/Creatinine Ratio 17.6 (8-20) 06/25/18 06:26 Glucose 123 mg/dL (70-100) H 06/25/18 06:26 Calcium 9.0 mg/dL (8.6-10.3) 06/25/18 06:26
[2018-06-25] MEDS ORDERED: Warfarin TAB(*) 4 MG PO ONE (17:00)
--- NOTE | 2018-06-25 20:52 | OP ---
DATE OF OPERATION: 06/24/18 - ROOM #346 DATE OF : 58 SURGEON: Marycruz Bailey MD BLACKTOP SPREADER: MARK Wyatt. Ms. Funes did help throughout the procedure with preparation of the leg, wound retraction, manipulation of the knees, and wound closure. ANESTHESIOLOGIST: Dr. Smith. ANESTHESIA: General. PRE-OP DIAGNOSIS: Severe end-stage degenerative osteoarthritis of the bilateral knees. POST-OP DIAGNOSIS: Severe end-stage degenerative osteoarthritis of the bilateral knees. OPERATIVE PROCEDURE: Bilateral total knee arthroplasties; this is right total knee arthroplasty and left total knee arthroplasty. INDICATIONS: Ms. Bowman is a 58-year-old female with years of increasingly severe bilateral knee pain. She failed conservative treatment with anti- inflammatories, pain medications, intraarticular injections, physical therapy, and attempt at weight loss. Radiographs showed [id number] arthritis. Due to continued pain and decreased quality of life, she elected to undergo bilateral total knee arthroplasties. She understood that there were increased risks of bilateral total knee arthroplasty and wished to proceed. Informed consent was obtained from the patient. She understood the risks of the surgery included, but were not limited to, bleeding, infection, damage to nearby structures, continued pain, need for further surgery, intraoperative fracture, nerve palsy, hardware failure or loosening, knee stiffness, loss of motion, stroke, heart attack, blood clot, and . She wished to proceed. COMPLICATIONS: None. TOTAL ESTIMATED BLOOD LOSS: 400 cc. SPECIMEN: Bone and cartilage from the bilateral knees sent to Pathology. TOURNIQUET TIME: Right knee was 48 minutes, left knee 42 minutes. HARDWARE: This is a [employer] cemented total knee arthroplasty hardware. Two packages of Simplex bone cement were used for each knee. For the right knee, the femur was a 5 Narrow right posterior stabilized Oxinium Legion femoral component. For the tibia, a size 3 right tibial base plate. For the insert an 11- mm posterior stabilized articular insert, and for the patella, a 32-mm 3-peg all poly patella with 7.5 thickness. For the left knee, the femur was a left 5 Narrow Oxinium Legion posterior stabilized femoral component. For the tibia, a size 3 left tibial base plate. For the insert a 9-mm posterior stabilized articular insert size 3-4, and for the patella, a 32-mm 3-peg all poly patella with 7.5 thickness. INTRAOPERATIVE FINDINGS: Intraoperatively, the patient had bilateral severe end - stage arthritis. Medial and patello-femoral compartment had complete loss of cartilage. She had extensive osteophyte formation. DESCRIPTION OF PROCEDURE: Ms. Bowman was identified in the preanesthesia unit. Her bilateral knees were marked as the correct operative sides. Informed consent was signed and placed in the chart. The patient was taken to the operating room and placed under general anesthesia. A Reyes catheter was placed. Tourniquet was placed on each thigh. Bilateral lower extremities were prepped and draped in usual sterile fashion. Preop time-out was made to correctly identify the patient's side and site. Appropriate perioperative antibiotics were given within 1 hour of incision. The left knee was replaced first. Right knee was covered with a half sheet. Left tourniquet was inflated and total tourniquet time for this procedure was 42 minutes. A 12-cm midline incision was made with a 10 blade and carried down to the extensor mechanism. A new 10 blade was used to make a standard medial parapatellar arthrotomy. The patella was subluxed laterally. Electrocautery was used to subperiosteally elevate the soft tissue off the superomedial tibia to the mid sagittal plane. The anterior horn of the lateral meniscus and ACL were sharply released. A drill was used to enter the distal femur. Intramedullary distal femoral cutting guide was pinned on the distal femur. Oscillating saw was used to make the distal femoral cut. Next, the external rotation guide was pinned on the distal femur and the distal femur was sized to a size 5. Size 5 multi-cutting jig was pinned on the distal femur. Oscillating saw was used to make the appropriate 4 chamfer cuts. PCL was completely released. The tibia was subluxed anteriorly. Extramedullary tibial cutting guide was pinned on the proximal tibia. Oscillating saw was used to make the proximal tibial cut perpendicular to the mechanical axis of the tibia. The bone was carefully removed. The knee was brought out into full extension. A spacer block had excellent fit with the knee in full extension. Medial and lateral ligaments were well balanced. The flexion and extension gaps were well balanced. The knee was flexed up. Lamina heater helper forge was placed both medially and laterally. Any remaining meniscus was carefully removed using electrocautery. A curved osteotome was used to remove any posterior osteophytes. Tibial tray and drop wood were placed and once again confirmed a satisfactory tibial cut. A left size 5 Narrow femoral trial was impacted on to the distal femur and had excellent stability. The box for the posterior stabilized implant was prepared using a reamer and box-cut osteotome. Size 3 tibial tray trial with a 9-mm insert trial was placed and the knee was taken through range of motion. The knee had full extension to 130 degrees with flexion. There was satisfactory patellofemoral tracking. The patellar was everted. 7 mm of patellar bone and cartilage were carefully removed using an oscillating saw. The patella was sized to a size 32. Three peg holes were drilled through the size 32 guide. The 32 trial patella with 7.5 thickness was chosen. The knee was taken through range of motion and there was satisfactory patellofemoral tracking. All trials were carefully removed. The tibia was subluxed anteriorly and sized to a size 3. Proximal tibia was prepared using a size 3 keel punch. All bony cut surfaces were copiously irrigated with sterile saline and dried. Final implants were cemented into place starting with the tibia followed by the femur and lastly the patella. A 9-mm insert trial was placed. The knee was taken out to full extension. Tourniquet was turned down at 42 minutes. The knee was copiously irrigated with sterile saline. Electrocautery was used to obtain meticulous hemostasis. Once the cement had fully cured, the insert trial was removed. Any excess cement was removed from around the capsule and hardware. Final insert chosen was a 9-mm posterior stabilized articular insert, size 3-4. This was locked into position on the tibial tray without difficulty. Stability of the insert was checked and rechecked and noted to be stable. The extensor mechanism was closed using interrupted #1 Vicryls. The rest of the incision was closed in a layered fashion using 0 and 2-0 Vicryls. Skin was closed using running 3-0 nylon suture. The incision was covered with sterile Xeroform, 4x4s, and Webril. Alexx wrap was placed over this. Next, attention was turned to the preparation of the right knee joint. Right thigh tourniquet was inflated and total tourniquet time for this procedure was 48 minutes. A 12-cm midline incision was made with a 10 blade and carried down to the extensor mechanism. A new 10 blade was used to make a standard medial parapatellar arthrotomy. The patella was subluxed laterally. Electrocautery was used to subperiosteally elevate the soft tissue off the superomedial tibia to the mid sagittal plane. The knee was flexed up. The anterior horn of the lateral meniscus and ACL were sharply released. A drill was used to enter the distal femur. Intramedullary distal femoral cutting guide was pinned on the distal femur. Oscillating saw was used to make the distal femoral cut. Next, the external rotation guide was pinned on the distal femur. Distal femur was sized to a size 5. Size 5 multi-cutting jig was pinned on the distal femur. Oscillating saw was used to make the appropriate 4 chamfer cuts. The PCL was completely released and the tibia was subluxed anteriorly. Extramedullary tibial cutting guide was pinned on the proximal tibia. Oscillating saw was used to make the proximal tibial cut perpendicular to the mechanical axis of the tibia. The tibial bone was carefully removed. The knee was brought out into full extension. A spacer block had excellent fit with the knee in full extension. Medial and lateral ligaments were well balanced. The flexion and extension gaps were well balanced. The knee was flexed up. Lamina heater helper forge was placed both medially and laterally. Any remaining meniscus was carefully removed using electrocautery. Curved osteotome was used to remove any posterior osteophytes. Tibial tray and drop wood were placed to once again confirm the satisfactory tibial cut. A size 5 right Narrow femur trial was impacted onto the distal femur, and had excellent fit. The box for the posterior stabilized implant was prepared using a reamer and box cut osteotome. Size 3 tibial tray trial with an 11-mm insert trial was placed and the knee was taken through a range of motion. The knee had full extension to 130 degrees of flexion with satisfactory patellofemoral tracking. Patella was everted. 7 mm of patellar bone and cartilage was carefully removed using an oscillating saw. The patella was sized to a size 32. Three peg holes were drilled through the size 32 guide. A 32 trial patella with 7.5 thickness was chosen. The knee was taken through a range of motion and there was satisfactory patellofemoral tracking. All trials were carefully removed. The tibia was subluxed anteriorly and sized to a size 3. Proximal tibia was prepared using a size 3 keel punch. All bony cut surfaces were copiously irrigated with sterile saline and dried. Final implants were cemented into place starting with the tibia, followed by the femur, and lastly the patella. An 11-mm insert trial was placed and the knee was brought out into full extension. Tourniquet was turned down at 48 minutes. The knee was copiously irrigated with sterile saline. Electrocautery was used to obtain meticulous hemostasis. Once the cement had fully cured, the insert trial was removed. Any excess cement was carefully removed from around the implant capsule. Final insert chosen was an 11-mm articular insert, size 3-4. This was locked into position on the tibial tray. Stability of the insert was checked and rechecked and noted to be stable. The knee was copiously irrigated with sterile saline. Extensor mechanism was closed using interrupted #1 Vicryls. The rest of the incision was closed in a layered fashion using 0 and 2-0 Vicryls. Skin was closed using running 3-0 nylon suture. Sterile Xeroform, 4x4s, and Webril were used to cover the incision. Alexx wrap was placed over this. Cold packs were placed on both knees. The patient's anesthesia was reversed without difficulty. She was taken to the PACU in stable condition. Intended weightbearing will be weightbearing as tolerated. Intended DVT prophylaxis will be Coumadin with a Lovenox bridge. [id number]/[facility] #: [id number] HORACE
[2018-06-26] MEDS: oxyCODONE TAB* 5 MG TAB PO PRN ×2 (04:41→10:08)
[2018-06-26] MEDS: Acetaminophen TAB* 325 MG PO SCH (05:04)
[2018-06-26 06:37] LABS: Hematocrit 35 % (35-47); Hemoglobin 11.9 g/dl (12.0-16.0); Mean Platelet Volume 8.2 um3 (7.4-10.4); Platelet Count 176 10^3/ul (150-450)
[2018-06-26 06:41] LABS: INR 1.3 (0.77-1.02)
[2018-06-26] MEDS: oxyCODONE/Acetamin 5/325 MG* TAB PO PRN (07:31)
[2018-06-26 08:22] VITALS: BP 153/69
[2018-06-26] MEDS: Docusate CAP* 100 MG PO SCH (09:03)
[2018-06-26] MEDS: Magnesium Hydroxide LIQ* 30 ML UDC PO SCH (09:03)
[2018-06-26] MEDS: Enoxaparin(*) 40 MG/0.4 ML SYR SUBCUT SCH (11:22)
--- NOTE | 2018-06-26 11:36 | PN ---
Progress Note - Progress Note Date of Service: 06/26/18 SOAP: Subjective: []Patient seen and examined OOB in chair. She strongly desires PMRU. Denies CP, SOB, dizziness, nausea or leg numbness. Objective: [] General: Well appearing, NAD BL LE: dressings changed, incisions CDI. Thighs soft, DF/PF intact. Dp2+. Sensation intact distally Calves are supple and nontender without erythema, edema or palpable cords Assessment: []Bilateral total knee replacements Plan: []WBAT PT/OT lovenox, coumadin 6 mg today To PMRU this morning Vital Signs Temp 98.2 F 06/26/18 07:19 Pulse 92 06/26/18 07:19 Resp 16 06/26/18 10:08 BP 153/69 06/26/18 07:19 Pulse Ox 96 06/26/18 08:00 Intake & Output 06/25/18 06/26/18 06/26/18 18:59 06:59 18:59 Intake Total 2861 2070 210 Output Total 1100 2525 900 Balance 1761 -455 -690 Intake: IV Fluids 1741 LR 1741 IVPB 110 LR 110 Oral 1010 2070 210 Output: Urine 1100 2250 900 Reyes 275 Laboratory Last Values Hgb 11.9 g/dl (12.0-16.0) L 06/26/18 06:18 Hct 35 % (35-47) 06/26/18 06:18 Plt Count 176 10^3/ul (150-450) 06/26/18 06:18 MPV 8.2 um3 (7.4-10.4) 06/26/18 06:18 INR (Anticoag Therapy) 1.30 (0.77-1.02) H 06/26/18 06:18 Sodium 139 mmol/L (135-145) 06/25/18 06:26 Potassium 4.5 mmol/L (3.5-5.0) 06/25/18 06:26 Chloride 103 mmol/L (101-111) 06/25/18 06:26 Carbon Dioxide 30 mmol/L (22-32) 06/25/18 06:26 Anion Gap 6 mmol/L (2-11) 06/25/18 06:26 BUN 13 mg/dL (6-24) 06/25/18 06:26 Creatinine 0.74 mg/dL (0.51-0.95) 06/25/18 06:26 Est GFR ( Amer) 97.2 (>60) 06/25/18 06:26 Est GFR (Non-Af Amer) 80.3 (>60) 06/25/18 06:26 BUN/Creatinine Ratio 17.6 (8-20) 06/25/18 06:26 Glucose 123 mg/dL (70-100) H 06/25/18 06:26 Calcium 9.0 mg/dL (8.6-10.3) 06/25/18 06:26
--- NOTE | 2018-06-27 08:47 | DS ---
AMENDED REPORT NOW INCLUDES DESIGNATED COSIGNER DISCHARGE SUMMARY: DATE OF ADMISSION: 06/24/18 DATE OF DISCHARGE: 06/26/18 PROVIDER: Dr. Marycruz Bailey.* (DICTATED BY MARK HILL) PREOPERATIVE DIAGNOSIS: Severe end-stage degenerative osteoarthritis of bilateral knees. OPERATIVE PROCEDURE: Bilateral total knee arthroplasties, that is, a right total knee arthroplasty and a left total knee arthroplasty. HISTORY: Ms. Bowman is a 58-year-old female with years of increasingly severe bilateral knee pain. She failed conservative treatment with anti-inflammatories , pain medications, intraarticular injections and physical therapy, and attempted weight loss. She elected to undergo a bilateral total knee arthroplasty. HOSPITAL COURSE: The patient was admitted to [facility] on . She underwent bilateral total knee replacements on 06/24/18 without complication. Postop day 1, she is well appearing, in no acute distress. Dressing clean, dry, intact. Dorsiflexion and plantarflexion intact. DP pulse 2+. Postop day 2, well appearing, in no acute distress. Dressing was changed. Incision clean, dry, and intact. Neurovascularly intact. Vital Signs: Temperature 98.2, pulse 92, respiratory rate 16, blood pressure 153/69, pulse ox 96. Hemoglobin 11.9, hematocrit 35. INR 1.30. She was deemed to be medically and orthopedically stable to discharge to [facility] at [facility]. DISCHARGE MEDICATIONS: 1. Econazole 1% topical b.i.d. 2. Vitamin D3 one cap p.o. q.a.m. 3. Docusate 100 mg p.o. b.i.d. 4. Lovenox 40 mg subcu q.24 hours until INR is therapeutic. 5. Percocet 5/325, one to two tabs every 4 to 6 hours as needed for pain, max daily dose of 10. 6. Tramadol 50 mg p.o. q.8 hours p.r.n. The patient may alternate with Percocet if needed. Please predominantly try to choose one or the other for pain control. 7. Warfarin 2 mg tablets, 1 to 3 tabs, daily dose depends on INR. 8. Acetaminophen 975 p.o. q.8 hours p.r.n. pain or fever, not to exceed 4000 mg from all sources. DISCHARGE INSTRUCTIONS: Discharge to PMRU. Weightbearing as tolerated. Last INR was 1.3 on 06/26/18. Coumadin dose 6 mg on 06/26/18, dosing by PMRU thereafter. Follow up with Dr. Bailey in 10 to 14 days. Pain control Percocet 5/ 325 one to two tablets every 4 to 6 hours as needed for pain, max daily dose of 10. MARK HILL [id number]/[facility] #: [id number] MTDD
== END 2018-06-26 11:30 | DRG 462 ==
LOC: AA 10:39 → SSU 19:54
PROVIDERS: ADMIT Orthopaedic Surgery Adult Reconstructive Orthopaedic Surgery; ATTEND Orthopaedic Surgery Adult Reconstructive Orthopaedic Surgery
PROC: 0SRC069 Replacement of Right Knee Joint with Oxidized Zirconium on Polyethylene Synthetic Substitute, Cemented, Open Approach (ICD-10-PCS; 2018-06-24)
PROC: 0SRD069 Replacement of Left Knee Joint with Oxidized Zirconium on Polyethylene Synthetic Substitute, Cemented, Open Approach (ICD-10-PCS; principal; 2018-06-24 13:00)
DX: M17.0 Bilateral primary osteoarthritis of knee (principal); Z68.41 Body mass index [BMI] 40.0-44.9, adult; E66.9 Obesity, unspecified; M25.762 Osteophyte, left knee; M25.761 Osteophyte, right knee; M06.9 Rheumatoid arthritis, unspecified; M25.462 Effusion, left knee; M25.461 Effusion, right knee; N28.1 Cyst of kidney, acquired; E04.1 Nontoxic single thyroid nodule; E55.9 Vitamin D deficiency, unspecified; E78.00 Pure hypercholesterolemia, unspecified; B37.2 Candidiasis of skin and nail; R91.8 Other nonspecific abnormal finding of lung field; Z88.2 Allergy status to sulfonamides; Z72.89 Other problems related to lifestyle; Z79.01 Long term (current) use of anticoagulants; Z98.51 Tubal ligation status; Z90.49 Acquired absence of other specified parts of digestive tract; Z88.0 Allergy status to penicillin; Z82.49 Family history of ischemic heart disease and other diseases of the circulatory system; Z87.891 Personal history of nicotine dependence; Z87.19 Personal history of other diseases of the digestive system; Z82.61 Family history of arthritis; Z82.3 Family history of stroke
CPT/HCPCS: 36415; 80048; 85014; 85018; 85049; 85610; 88305; 88311; A9270-GY; C1776; J1100; J1650; J1885; J2250; J2405; J2704; J2710; J3010